=== PATIENT | male | born 1945 | race Caucasian/White ===

== ENCOUNTER 2017-07-15 14:37 | Emergency (ER) | payer MEDICARE, BC ==
[2017-07-15 14:50] VITALS: BP 142/80
[2017-07-15] MEDS ORDERED: Sodium Chloride 0.9% 10 ML Syringe FLUSH PRN (15:07)
[2017-07-15] MEDS ORDERED: Sodium Chloride 0.9% 1,000 ML IV SCH (15:15)
[2017-07-15] MEDS ORDERED: Diatrizoate Meglumine/Diatrizoate Sodium 37% 120 ML Bottle PO ONE (15:55)
[2017-07-15] MEDS ORDERED: LORazepam 2 MG/ML MDV IVPUSH ONE (16:55)
[2017-07-15] MEDS ORDERED: HYDROmorphone 0.5 MG/0.5 ML Syringe IVPUSH ONE (16:55)
--- NOTE | 2017-07-15 16:58 | CT ---
CT abdomen and pelvis Technique: Multiple axial sections were obtained from above the dome of the diaphragm inferiorly through the pubic symphysis. Intravenous contrast was refused by the patient. Oral contrast has been given. Findings: Right inguinal hernia is identified containing a portion of the sigmoid colon. This hernia does not appear to cause any obstruction at this time. There appears to be bowel wall thickening within the right side of the colon and cecum. No small bowel dilatation is seen. Visualized lung bases shows nothing acute. Noncontrast appearance of the liver appears within normal limits. Small hiatal hernia is seen. Spleen appears within normal limits. Kidneys show no abnormal calcifications or hydronephrosis. No discrete adrenal mass is appreciated. Pancreas shows no discrete abnormality. Surgical clips are seen around the stomach. Appendix not appreciated with certainty. No free fluid or definite inflammatory change is seen. Bone window settings were reviewed which show scattered degenerative change within the spine. Unilateral spondylolytic defect is seen at L5-S1. Impression: 1. Right inguinal hernia containing a loop of nondilated sigmoid colon. 2. Bowel wall thickening appears to be present within the right colon and cecum compatible with a nonspecific colitis. 3. Appendix is not definitely visualized. 4. Small hiatal hernia and other incidental findings. Diagnostic code #3
--- NOTE | 2017-07-15 17:25 | EDM.PDOC ---
ED HPI GENERAL MEDICAL PROBLEM - General Chief Complaint: Abdominal Pain Stated Complaint: LOWER ABDOMINAL PAIN Time Seen by Provider: 07/15/17 14:49 Source of Information: Reports: Patient History Limitations: Reports: No Limitations - History of Present Illness INITIAL COMMENTS - FREE TEXT/NARRATIVE: The patient presents with lower abdominal pain. He has a known right inguinal hernia that has not bothered him for years. He was walking across his lawn today and developed severe pain to the suprapubic/pubic region. There was a mass there according to his . The pain was better when he got here. He had some nausea with it but no vomiting. He got diaphoretic. He has no dysuria or hematuria. He has no fever, chills, cough, chest pain or shortness of breath. Onset: Sudden Duration: Minutes: Location: Reports: Abdomen (Suprapubic and pubic) Quality: Reports: Sharp Severity: Severe Improves with: Reports: None Worsens with: Reports: None Associated Symptoms: Reports: Nausea/Vomiting. Denies: Chest Pain, Cough, Fever /Chills, Shortness of Breath Lower Abdominal Pain Score (Numeric/FACES): 8 - Related Data Allergies Allergy/AdvReac Type Severity Reaction Status Date / Time ERICH Inhibitors Allergy Cough Verified 07/15/17 14:50 Home Meds: Home Meds Acetaminophen/Diphenhydramine [Tylenol Pm Ex-Strength Caplet] 1 tab PO BEDTIME PRN 08/02/16 [History] Aspirin 162 mg PO DAILY 08/02/16 [History] Fluticasone/Salmeterol [Advair 250-50 Diskus] 1 puff INH BID 08/02/16 [History] Insulin Detemir [Levemir Flextouch] 6 units SQ BEDTIME 08/02/16 [History] Insulin Detemir [Levemir Flextouch] 26 units SQ QAM 08/02/16 [History] Metoprolol Tartrate 25 mg PO BID 08/02/16 [History] Multivitamin [Multivitamins] 1 each PO DAILY 08/02/16 [History] Olmesartan [Benicar] 5 mg PO DAILY 08/02/16 [History] Silver Sulfadiazine [Silvadene 1% Cream 20 GM] 1 applic TOP TID PRN 08/02/16 [ History] Triamcinolone Acetonide [Kenalog-10] 1 applic TOP BID PRN 08/02/16 [History] Ubidecarenone [Coq-10] 1 tab PO DAILY 08/02/16 [History] atorvaSTATin [Lipitor] 40 mg PO BEDTIME 08/02/16 [History] Levothyroxine 150 mcg PO DAILY 07/15/17 [History] Melatonin 10 mg PO BEDTIME 07/15/17 [History] Past Medical History HEENT History: Reports: Allergic Rhinitis, Impaired Vision, Other (See Below) Other HEENT History: wears glasses Cardiovascular History: Reports: CAD, High Cholesterol, Hypertension, [place] Respiratory History: Reports: Sleep Apnea Other Respiratory History: medialstinal and hilar lympadenopathy, restrictive lung disease Gastrointestinal History: Reports: Other (See Below) Other Gastrointestinal History: Hernia Genitourinary History: Reports: Other (See Below) Other Genitourinary History: erectile dysfunction Musculoskeletal History: Reports: Fracture Other Musculoskeletal History: broken wrist Neurological History: Reports: CVA, Other (See Below) Other Neuro History: Right sided weakness Endocrine/Metabolic History: Reports: Diabetes, Type II, Hyperthyroidism, Hypothyroidism Other Endocrine/Metabolic History: thyroid mass Hematologic History: Reports: Other (See Below) Other Hematologic History: thrombocytopenia, hyperkalemia Dermatologic History: Reports: Seborrheic Dermatitis - Past Surgical History Cardiovascular Surgical History: Reports: Coronary Artery Bypass Endocrine Surgical History: Reports: Thyroidectomy Social & Family History - Family History Family Medical History: Noncontributory - Tobacco Use Smoking Status *Q: Never Smoker Month Tobacco Last Used: 30 years ago - Recreational Drug Use Recreational Drug Use: No Drug Use in Last 12 Months: No ED ROS GENERAL - Review of Systems Review Of Systems: See Below Constitutional: Reports: No Symptoms HEENT: Reports: No Symptoms Respiratory: Reports: No Symptoms Cardiovascular: Reports: No Symptoms Endocrine: Reports: No Symptoms GI/Abdominal: Reports: Abdominal Pain, Nausea. Denies: Vomiting : Reports: No Symptoms Musculoskeletal: Reports: No Symptoms ED EXAM, GI/ABD - Physical Exam Exam: See Below Exam Limited By: No Limitations General Appearance: Alert, No Apparent Distress Ears: Normal External Exam Nose: Normal Inspection Head: Atraumatic, Normocephalic Neck: Normal Inspection Respiratory/Chest: No Respiratory Distress, Lungs Clear, Normal Breath Sounds Cardiovascular: Regular Rate, Rhythm, No Edema, No Murmur GI/Abdominal Exam: Soft, Non-Tender, No Organomegaly, No Mass, Other (Fullness to the right inguinal area) Course - Vital Signs Last Recorded V/S: Last Vital Signs Temp 97.2 F 07/15/17 14:46 Pulse 69 07/15/17 14:46 Resp 16 07/15/17 14:46 BP 142/80 H 07/15/17 14:46 Pulse Ox 98 07/15/17 14:46 - Orders/Labs/Meds Orders: Active Orders 24 hr Category Date Time Status Peripheral IV Care [RC] . DIRECTED Care 07/15/17 15:08 Active Sodium Chloride 0.9% [Normal Saline] 1,000 ml Med 07/15/17 15:15 Active IV ASDIRECTED Sodium Chloride 0.9% [Saline Flush] Med 07/15/17 15:07 Active 10 ml FLUSH ASDIRECTED PRN Peripheral IV Insertion Adult [OM.PC] Stat Oth 07/15/17 15:07 Ordered Medication Orders Sodium Chloride (Normal Saline) 1,000 mls @ 125 mls/hr IV ASDIRECTED JOSE RAFAEL Last Admin: 07/15/17 15:27 Dose: 125 mls/hr Sodium Chloride (Saline Flush) 10 ml FLUSH ASDIRECTED PRN PRN Reason: Keep Vein Open Last Admin: 07/15/17 15:26 Dose: 10 ml Labs: Laboratory Tests 07/15/17 07/15/17 07/15/17 Range/Units 15:20 15:25 15:25 WBC 3.43 L (4.23-9.07) K/mm3 RBC 4.52 L (4.63-6.08) M/mm3 Hgb 14.6 (13.7-17.5) gm/L Hct 43.1 (40.1-51.0) % MCV 95.4 H (79.0-92.2) fl MCH 32.3 H (25.7-32.2) pg MCHC 33.9 (32.2-35.5) g/dl RDW Std Deviation 43.7 (35.1-43.9) fL Plt Count 112 L (163-337) K/mm3 MPV 11.0 (9.4-12.3) fl Neut % (Auto) 53.6 (34.0-67.9) % Lymph % (Auto) 28.3 (21.8-53.1) % [place] % (Auto) 10.8 (5.3-12.2) % Eos % (Auto) 6.4 (0.8-7.0) Baso % (Auto) 0.9 (0.1-1.2) % Neut # (Auto) 1.84 (1.78-5.38) K/mm3 Lymph # (Auto) 0.97 L (1.32-3.57) K/mm3 [place] # (Auto) 0.37 (0.30-0.82) K/mm3 Eos # (Auto) 0.22 (0.04-0.54) K/mm3 Baso # (Auto) 0.03 (0.01-0.08) K/mm3 Sodium 142 (136-145) mEq/L Potassium 5.1 (3.5-5.1) mEq/L Chloride 105 (98-107) mEq/L Carbon Dioxide 29 (21-32) mEq/L Anion Gap 13.1 (5-15) BUN 26 H (7-18) mg/dL Creatinine 1.3 (0.7-1.3) mg/dL Est Cr Clr Drug Dosing 55.45 mL/min Estimated GFR (MDRD) 55 (>60) mL/min BUN/Creatinine Ratio 20.0 H (14-18) Glucose 280 H (80-115) mg/dL Calcium 8.5 (8.5-10.1) mg/dL Total Bilirubin 0.8 (0.2-1.0) mg/dL AST 39 H (15-37) U/L ALT 46 (16-63) U/L Alkaline Phosphatase 91 (46-116) U/L Total Protein 6.6 (6.4-8.2) g/dl Albumin 3.5 (3.4-5.0) g/dl Globulin 3.1 gm/dL Albumin/Globulin Ratio 1.1 (1-2) Lipase 111 (73-393) U/L Urine Color Light yellow (Yellow) Urine Appearance Clear (Clear) Urine pH 6.5 (5.0-8.0) Ur Specific Depue 1.015 (1.005-1.030) Urine Protein Negative (Negative) Urine Glucose (UA) 2+ H (Negative) Urine Ketones Negative (Negative) Urine Occult Blood Trace-intact H (Negative) Urine Nitrite Negative (Negative) Urine Bilirubin Negative (Negative) Urine Urobilinogen 0.2 (0.2-1.0) Ur Leukocyte Esterase Negative (Negative) Urine RBC 5-10 H (0-5) /hpf Urine WBC 0-5 (0-5) /hpf Ur Epithelial Cells 0-5 (0-5) /hpf Urine Bacteria Rare (FEW) /hpf Urine Mucus Not seen (FEW) /hpf Meds: Medications Generic Name Dose Route Start Last Admin Trade Name Freq PRN Reason Stop Dose Admin Sodium Chloride 1,000 mls @ 125 mls/hr 07/15/17 15:15 07/15/17 15:27 Normal Saline IV 125 mls/hr ASDIRECTED JOSE RAFAEL Administration Sodium Chloride 10 ml 07/15/17 15:07 07/15/17 15:26 Saline Flush FLUSH 10 ml ASDIRECTED PRN Administration Keep Vein Open Discontinued Medications Generic Name Dose Route Start Last Admin Trade Name Freq PRN Reason Stop Dose Admin Diatrizoate Meglum/Diatrizoate Sod 90 ml 07/15/17 15:55 07/15/17 16:26 Gastrografin 37% PO 07/15/17 15:56 90 ml ONETIME ONE Administration Hydromorphone HCl 0.5 mg 07/15/17 16:55 Dilaudid IVPUSH 07/15/17 16:56 ONETIME ONE Lorazepam 0.5 mg 07/15/17 16:55 Ativan IVPUSH 07/15/17 16:56 ONETIME ONE - Re-Assessments/Exams Free Text/Narrative Re-Assessment/Exam: 07/15/17 17:23 I ordered an IV saline lock, labs and a CT of his abdomen and pelvis. 07/15/17 17:26 His WBC was 3.43. His BUN was elevated at 26. His glucose was 280. His AST was elevated at 39. His UA shows no UTI. His CT shows right inguinal hernia containing a loop of nondilated sigmoid colon. Bowel wall thickening appears to be present within the right colon and cecum compatible with a nonspecific colitis. Appendix is not definitely visualized. Small hiatal hernia and other incidental findings. When he go up to go to CT his pain come back but not as bad. He went to have a bowel movement and it came back severe. I ordered dilaudid 0.5mg IV and ativan 0.5mg IV. He was able to relax and the pain got better. The hernia was not bulging out when he had the severe pain. I could not fully reduce it. 07/15/17 17:40 Dr Renteria came to see the patient and he was able to fully reduce it. He would like to see him and he would like a truss from [facility]. Departure - Departure Time of Disposition: 17:45 Disposition: Home, Self-Care 01 Condition: Good Clinical Impression: Right inguinal hernia - Discharge Information Referrals: Nghia Renteria MD [Physician] - Forms: ED Department Discharge Additional Instructions: Get the hernia truss from [facility] know as [facility]. Follow up with . Call tomorrow to make an appointment and make sure you tell them you were in the ER and Dr Renteria wants to see you on . Please return if you are worse. - My Orders Last 24 Hours: My Active Orders 07/15/17 15:07 Sodium Chloride 0.9% [Saline Flush] 10 ml FLUSH ASDIRECTED PRN Peripheral IV Insertion Adult [OM.PC] Stat 07/15/17 15:08 Peripheral IV Care [RC] . DIRECTED 07/15/17 15:15 Sodium Chloride 0.9% [Normal Saline] 1,000 ml IV ASDIRECTED - Assessment/Plan Last 24 Hours: My Active Orders 07/15/17 15:07 Sodium Chloride 0.9% [Saline Flush] 10 ml FLUSH ASDIRECTED PRN Peripheral IV Insertion Adult [OM.PC] Stat 07/15/17 15:08 Peripheral IV Care [RC] . DIRECTED 07/15/17 15:15 Sodium Chloride 0.9% [Normal Saline] 1,000 ml IV ASDIRECTED
== END 2017-07-15 18:00 | disposition home or self-care (01) ==
LOC: JD.ED 14:37
DX: K40.90 Unilateral inguinal hernia, without obstruction or gangrene, not specified as recurrent (principal); H54.7 Unspecified visual loss; E78.00 Pure hypercholesterolemia, unspecified; I25.10 Atherosclerotic heart disease of native coronary artery without angina pectoris; I10 Essential (primary) hypertension; I25.2 Old myocardial infarction; E11.9 Type 2 diabetes mellitus without complications; E03.9 Hypothyroidism, unspecified; Z95.1 Presence of aortocoronary bypass graft; Z88.8 Allergy status to other drugs, medicaments and biological substances; Z79.82 Long term (current) use of aspirin; Z79.899 Other long term (current) drug therapy; Z98.890 Other specified postprocedural states; Z86.73 Personal history of transient ischemic attack (TIA), and cerebral infarction without residual deficits
CPT/HCPCS: 36415; 74176; 80053; 81001; 83690; 85025; 96361; 96374; 96375; 99284; J1170; J2060; J7040; J7050; Q9963

== ENCOUNTER 2017-08-13 08:17 | Day surgery (SDC) | payer MEDICARE, BC ==
[~2017-08-13 08:17] MED LIST: Dexamethasone 4 MG/ML SDV ONE; Lactated Ringers 1,000 ML IV SCH; Lidocaine 1% 4 ML ONE; Lidocaine 1%/Sod Bicarbonate in NS 8.4% 1 ML Syringe PRN; Midazolam 1 MG/ML 2 ML SDV ONE; Ondansetron 4 MG/2 ML SDV ONE; Propofol 200 MG/20 ML SDV ONE; Sodium Chloride 0.9% 10 ML Syringe FLUSH PRN; fentaNYL 250 MCG/5 ML SDV ONE
[2017-08-13] MEDS ORDERED: Lidocaine 1% with EPINEPHrine 1:100,000 20 ML MDV ONE (08:19)
[2017-08-13] MEDS ORDERED: Bupivacaine 0.5%/EPINEPHrine 1:200,000 50 ML MDV ONE (08:19)
--- NOTE | 2017-08-13 08:37 | PCM.PREANE ---
Preanesthetic Assessment - Anesthesia/Transfusion/Family Hx Anesthesia History: Prior Anesthesia Without Reaction Family History of Anesthesia Reaction: No Transfusion History: No Prior Transfusion(s) Intubation History: Unknown - Review of Systems General: No Symptoms Pulmonary: No Symptoms (Quit smoking 30 years ago./COPD Restrictive in pattern/ Resolved KEYONNA with weight loss) Cardiovascular: No Symptoms (HTN, CAD, MT tentatively in 2013, CABG in 1997 times 5 vessels, Patient denies any chest pain currently and walks daily.) Neurological: No Symptoms (History of CVA 2013), Weakness (Right sided weakness noted.), Gait Disturbance (due to stroke and right sided weakness) Other: Reports: Diabetes (629 HI=120), Thyroid Problems (Thyroidectomy in May 2017) - Physical Assessment NPO Status Date: 08/12/17 NPO Status Time: 18:00 Pulse: 58 O2 Sat by Pulse Oximetry: 98 Respiratory Rate: 16 Blood Pressure: 130/78 Temperature: 36.6 C Height: 1.79 m Weight: 94.801 kg ASA Class: 3 Mental Status: Alert & Oriented x3 Airway Class: Mallampati = 2 Dentition: Reports: Normal Dentition, Caries Thyro-Mental Finger Breadths: 3 Mouth Opening Finger Breadths: 3 ROM/Head Extension: Full Lungs: Clear to Auscultation, Normal Respiratory Effort, Decreased Breath Sounds Cardiovascular: Regular Rate, Regular Rhythm, No Murmurs - Lab Values: Lab values reviewed and noted and within acceptable ranges to proceed with scheduled procedure. Elevated BUN =26 MRSA - - Imaging/EKG Impressions: EKG:(June 05, 2017) SB with PVC's rate=59, RBBB, Inferior infarct- age undetermined Stable mild hilar mediastinal lymphadenopathy noted. EF: 55% - Allergies Allergies/Adverse Reactions: Allergies Allergy/AdvReac Type Severity Reaction Status Date / Time ERICH Inhibitors AdvReac Cough Verified 08/13/17 07:54 - Anesthesia Plan Pre-Op Medication Ordered: None Beta Isis: Metoprolol Med Last Dose Date: 08/13/17 Med Last Dose Time: 06:30 - Acknowledgements Anesthesia Type Planned: General Anesthesia Pt an Appropriate Candidate for the Planned Anesthesia: Yes Alternatives and Risks of Anesthesia Discussed w Pt/Guardian: Yes Pt/Guardian Understands and Agrees with Anesthesia Plan: Yes PreAnesthesia Questionnaire HEENT History: Reports: Allergic Rhinitis, Impaired Vision, Other (See Below) Other HEENT History: wears glasses Cardiovascular History: Reports: CAD, High Cholesterol, Hypertension, [place] Respiratory History: Reports: Sleep Apnea Other Respiratory History: medialstinal and hilar lympadenopathy, restrictive lung disease Gastrointestinal History: Reports: Colon Polyp, Other (See Below) Other Gastrointestinal History: Hernia Genitourinary History: Reports: Other (See Below) Other Genitourinary History: erectile dysfunction [employer] History: Reports: None Musculoskeletal History: Reports: Fracture Other Musculoskeletal History: broken wrist Neurological History: Reports: CVA, Other (See Below) Other Neuro History: Right sided weakness Psychiatric History: Reports: None Endocrine/Metabolic History: Reports: Diabetes, Type II, Hyperthyroidism, Hypothyroidism Other Endocrine/Metabolic History: thyroid mass Hematologic History: Reports: Other (See Below) Other Hematologic History: thrombocytopenia, hyperkalemia Immunologic History: Reports: None Oncologic (Cancer) History: Reports: None Dermatologic History: Reports: Seborrheic Dermatitis - Past Surgical History Head Surgeries/Procedures: Reports: None Cardiovascular Surgical History: Reports: Coronary Artery Bypass GI Surgical History: Reports: Colonoscopy Endocrine Surgical History: Reports: Thyroidectomy - SUBSTANCE USE Smoking Status *Q: Never Smoker Recreational Drug Use History: No - HOME MEDS Home Medications: Home Meds Acetaminophen/Diphenhydramine [Tylenol Pm Ex-Strength Caplet] 1 tab PO BEDTIME PRN 08/02/16 [History] Aspirin 162 mg PO DAILY 08/02/16 [History] Fluticasone/Salmeterol [Advair 250-50 Diskus] 1 puff INH BID 08/02/16 [History] Insulin Detemir [Levemir Flextouch] 6 units SQ BEDTIME 08/02/16 [History] Insulin Detemir [Levemir Flextouch] 26 units SQ QAM 08/02/16 [History] Metoprolol Tartrate 25 mg PO BID 08/02/16 [History] Multivitamin [Multivitamins] 1 each PO DAILY 08/02/16 [History] Olmesartan [Benicar] 5 mg PO DAILY 08/02/16 [History] Silver Sulfadiazine [Silvadene 1% Cream 20 GM] 1 applic TOP TID PRN 08/02/16 [ History] Triamcinolone Acetonide [Kenalog-10] 1 applic TOP BID PRN 09/09/16 [History] Ubidecarenone [Coq-10] 1 tab PO DAILY 08/02/16 [History] atorvaSTATin [Lipitor] 40 mg PO BEDTIME 08/02/16 [History] Levothyroxine 150 mcg PO DAILY 07/15/17 [History] Melatonin 10 mg PO BEDTIME 07/15/17 [History] - CURRENT (IN HOUSE) MEDS Current Meds: Current Medications Lactated Ringer's (Ringers, Lactated) 1,000 mls @ 125 mls/hr IV ASDIRECTED JOSE RAFAEL Stop: 08/13/17 23:00 Lidocaine/Sodium Bicarbonate (Buffered Lidocaine 1% In Ns 8.4%) 0.25 ml .XX ONETIME PRN PRN Reason: Prior to IV Start Stop: 08/13/17 18:00 Sodium Chloride (Saline Flush) 10 ml FLUSH ASDIRECTED PRN PRN Reason: Keep Vein Open Stop: 08/13/17 18:00 Discontinued Medications Dexamethasone (Dexamethasone) Confirm Administered Dose 4 mg .ROUTE .STK-MED ONE Stop: 08/13/17 07:12 Fentanyl (Sublimaze) Confirm Administered Dose 250 mcg .ROUTE .STK-MED ONE Stop: 08/13/17 07:11 Lidocaine HCl (Xylocaine-Mpf 1%) Confirm Administered Dose 4 mls @ as directed .ROUTE .STK-MED ONE Stop: 08/13/17 07:12 Midazolam HCl (Versed 1 Mg/Ml) Confirm Administered Dose 2 mg .ROUTE .STK-MED ONE Stop: 08/13/17 07:11 Ondansetron HCl (Zofran) Confirm Administered Dose 4 mg .ROUTE .STK-MED ONE Stop: 08/13/17 07:12 Propofol (Diprivan 20 Ml) Confirm Administered Dose 200 mg .ROUTE .STK-MED ONE Stop: 08/13/17 07:11
[2017-08-13] MEDS ORDERED: ceFAZolin 1 GM Vial ONE (09:28)
[2017-08-13] MEDS ORDERED: ePHEDrine/Normal Saline 25 MG/5 ML Syringe ONE (09:46)
[2017-08-13] MEDS ORDERED: fentaNYL 100 MCG/2 ML SDV IVPUSH PRN (11:14)
[2017-08-13] MEDS ORDERED: Ondansetron 4 MG/2 ML SDV IVPUSH PRN (11:14)
[2017-08-13] MEDS ORDERED: diphenhydrAMINE 50 MG/ML SDV IVPUSH PRN (11:14)
[2017-08-13] MEDS ORDERED: Meperidine PF 50 MG/ML Syringe IVPUSH PRN (11:14)
[2017-08-13] MEDS ORDERED: HYDROmorphone 0.5 MG/0.5 ML Syringe IVPUSH PRN (11:14)
--- NOTE | 2017-08-13 11:36 | PCM.OPNOTE ---
- General Post-Op/Procedure Note Date of Surgery/Procedure: 08/13/17 Operative Procedure(s): 1. Open right inguinal hernia repair with mesh. 2. Excision of cord lipoma Findings: Subcutaneous tissue scarring as well as scarring along the external oblique fascia. There was a large indirect hernia sac located anterior and medial to the spermatic cord structures. The floor of the canal was in good shape. There was a large cord lipoma attached to the hernia sac in the lateral position. Pre Op Diagnosis: Symptomatic right inguinal hernia Post-Op Diagnosis: Indirect right inguinal hernia. Cord lipoma Anesthesia Technique: General LMA, Local Primary Surgeon: Nghia Renteria Pathology: None EBL in mLs: 5 Complications: None Condition: Good Free Text/Narrative:: After adequate LMA general anesthesia was obtained the patient's right groin was prepped and draped sterilely for the procedure. Local analgesia was given over the inguinal canal. An incision was made with a knife and extended down to the external oblique fascia which was opened in the direction of its fibers. There was extensive scarring from the truss that he had been wearing and the chronicity hernia. The nerve was identified and retracted laterally. The cord was mobilized at the pubic tubercle. The floor of the canal was intact. There was a large hernia sac present along the anteromedial aspect of the spermatic cord. The sac was carefully dissected away from cord structures after mobilizing the cord and controlled with a [place] drain. I opened the sac which was empty. I used a 2-0 silk suture to ligate the base of the sac which was amputated. The previously described cord lipoma was clamped at its base and ligated as well after excision. Mesh was placed in the floor of the canal securing it to the inguinal ligament and the internal oblique fascia with running 2-0 Prolene. A keyhole in the mesh was used for cord egress. The field was irrigated out with saline. Spot hemostasis was obtained with cautery. The external oblique fascia was closed over the cord with a running Vicryl. Wade' s and the skin were closed with Vicryl as well. Additional local analgesia was given before skin closure. Jennifer were used to close the skin. Gauze and tape were used for the dressing. There were no procedural complications.
--- NOTE | 2017-08-13 11:44 | PCM.POSTAN ---
POST ANESTHESIA ASSESSMENT - MENTAL STATUS Mental Status: Alert, Oriented - VITAL SIGNS Pulse Rate: 76 SaO2: 94 Resp Rate: 16 Blood Pressure: 106/64 Temperature: 37.6 C - RESPIRATORY Respiratory Status: Respiratory Rate WNL, Airway Patent, O2 Saturation Stable, Supplemental Oxygen - CARDIOVASCULAR CV Status: Pulse Rate WNL, Blood Pressure Stable - GASTROINTESTINAL GI Status: No Symptoms - PAIN Pain Score: 0 - POST OP HYDRATION Hydration Status: Adequate & Stable
[2017-08-13 13:41] VITALS: BP 113/60
--- NOTE | 2017-08-13 13:46 | PCM48HPAN ---
Post Anesthesia Note - EVALUATION WITHIN 48HRS OF ANESTHETIC Vital Signs in Normal Range: Yes Patient Participated in Evaluation: Yes Respiratory Function Stable: Yes Airway Patent: Yes Cardiovascular Function Stable: Yes Hydration Status Stable: Yes Pain Control Satisfactory: Yes Nausea and Vomiting Control Satisfactory: Yes Mental Status Recovered: Yes
== END 2017-08-13 13:30 | disposition home or self-care (01) ==
LOC: JD.SDS 08:17
PROVIDERS: ATTEND Surgery
PROC: 0YU50JZ Supplement Right Inguinal Region with Synthetic Substitute, Open Approach (ICD-10-PCS; principal; 2017-08-13)
PROC: 0VBF0ZZ Excision of Right Spermatic Cord, Open Approach (ICD-10-PCS; 2017-08-13)
DX: K40.90 Unilateral inguinal hernia, without obstruction or gangrene, not specified as recurrent (principal); I25.10 Atherosclerotic heart disease of native coronary artery without angina pectoris; I10 Essential (primary) hypertension; I25.2 Old myocardial infarction; J44.9 Chronic obstructive pulmonary disease, unspecified; J30.2 Other seasonal allergic rhinitis; E11.9 Type 2 diabetes mellitus without complications; E78.00 Pure hypercholesterolemia, unspecified; E89.0 Postprocedural hypothyroidism; D69.6 Thrombocytopenia, unspecified; Z79.4 Long term (current) use of insulin; Z79.82 Long term (current) use of aspirin; Z79.899 Other long term (current) drug therapy; Z88.8 Allergy status to other drugs, medicaments and biological substances; Z90.89 Acquired absence of other organs; Z95.1 Presence of aortocoronary bypass graft; Z98.890 Other specified postprocedural states; Z86.73 Personal history of transient ischemic attack (TIA), and cerebral infarction without residual deficits; Z87.891 Personal history of nicotine dependence
CPT/HCPCS: 49505; 55520; 82962; C1781; J0690; J1170; J2250; J2405; J3010; J7050; J7120; 00830; J1100; J2704

== ENCOUNTER 2017-10-06 16:58 | Inpatient (IN) | payer MEDICARE, BC ==
[2017-10-06] MEDS ORDERED: HYDROmorphone 0.5 MG/0.5 ML Syringe IVPUSH STA (17:58)
[2017-10-06] MEDS ORDERED: HYDROmorphone 1 MG/ML Syringe IVPUSH ONE (18:31)
--- NOTE | 2017-10-06 18:33 | EDM.PDOC ---
ED HPI GENERAL MEDICAL PROBLEM - General Chief Complaint: Lower Extremity Injury/Pain Stated Complaint: DI AMBULANCE Time Seen by Provider: 10/06/17 18:32 Source of Information: Reports: Patient History Limitations: Reports: No Limitations - History of Present Illness INITIAL COMMENTS - FREE TEXT/NARRATIVE: Patient is a 72-year-old male with a history of stroke in 2013 with balance issues who presents to the ED complaining of right hip pain. Patient states he was putting something away in the kitchen and turned. Upon turning the patient lost his balance and fell on his right hip. There was no loss consciousness. He only complains of right hip pain denies any additional injuries remaining parts of his body. Nor does he complain of any chest pain, shortness of breath, nausea vomiting, abdominal pain, numbness or tingling, or any additional complaints. Last meal was approximately noon today. States he has not had anything to drink sine lunch as well. Patient has a long history of chronic comorbidities. Please see list. In relation to the stroke they were unable to isolate where the emboli came from. They suspect patient may have had a heart attack while crossing the [facility] throwing multiple clots to his brain. Patient has has had multiple strokes apparent on imaging. Right Hip Pain Score (Numeric/FACES): 8 - Related Data Allergies Allergy/AdvReac Type Severity Reaction Status Date / Time ERICH Inhibitors AdvReac Cough Verified 08/13/17 07:54 Home Meds: Home Meds Acetaminophen/Diphenhydramine [Tylenol Pm Ex-Strength Caplet] 1 tab PO BEDTIME PRN 08/02/16 [History] Aspirin 162 mg PO DAILY 08/02/16 [History] Fluticasone/Salmeterol [Advair 250-50 Diskus] 1 puff INH BID 08/02/16 [History] Insulin Detemir [Levemir Flextouch] 6 units SQ BEDTIME 08/02/16 [History] Insulin Detemir [Levemir Flextouch] 26 units SQ QAM 08/02/16 [History] Metoprolol Tartrate 25 mg PO BID 08/02/16 [History] Multivitamin [Multivitamins] 1 each PO DAILY 08/02/16 [History] Olmesartan [Benicar] 5 mg PO DAILY 08/02/16 [History] Silver Sulfadiazine [Silvadene 1% Cream 20 GM] 1 applic TOP TID PRN 08/02/16 [ History] Triamcinolone Acetonide [Kenalog-10] 1 applic TOP BID PRN 08/02/16 [History] Ubidecarenone [Coq-10] 1 tab PO DAILY 08/02/16 [History] atorvaSTATin [Lipitor] 40 mg PO BEDTIME 08/02/16 [History] Levothyroxine 150 mcg PO DAILY 07/15/17 [History] Melatonin 10 mg PO BEDTIME 07/15/17 [History] Past Medical History HEENT History: Reports: Allergic Rhinitis, Impaired Vision, Other (See Below) Other HEENT History: wears glasses Cardiovascular History: Reports: CAD, High Cholesterol, Hypertension, [place] Respiratory History: Reports: Sleep Apnea Other Respiratory History: medialstinal and hilar lympadenopathy, restrictive lung disease Gastrointestinal History: Reports: Colon Polyp, Other (See Below) Other Gastrointestinal History: Hernia Genitourinary History: Reports: Other (See Below) Other Genitourinary History: erectile dysfunction [employer] History: Reports: None Musculoskeletal History: Reports: Fracture Other Musculoskeletal History: broken wrist Neurological History: Reports: CVA, Other (See Below) Other Neuro History: Right sided weakness Psychiatric History: Reports: None Endocrine/Metabolic History: Reports: Diabetes, Type II, Hyperthyroidism, Hypothyroidism Other Endocrine/Metabolic History: thyroid mass Hematologic History: Reports: Other (See Below) Other Hematologic History: thrombocytopenia, hyperkalemia Immunologic History: Reports: None Oncologic (Cancer) History: Reports: None Dermatologic History: Reports: Seborrheic Dermatitis - Past Surgical History Head Surgeries/Procedures: Reports: None Cardiovascular Surgical History: Reports: Coronary Artery Bypass GI Surgical History: Reports: Colonoscopy Endocrine Surgical History: Reports: Thyroidectomy Social & Family History - Family History Family Medical History: Noncontributory - Tobacco Use Smoking Status *Q: Never Smoker Month Tobacco Last Used: 30 years ago Second Hand Smoke Exposure: No - Caffeine Use Caffeine Use: Reports: Coffee - Recreational Drug Use Recreational Drug Use: No Drug Use in Last 12 Months: No Review of Systems - Review of Systems Review Of Systems: ROS reveals no pertinent complaints other than HPI. ED EXAM, GENERAL - Physical Exam Exam: See Below Exam Limited By: No Limitations General Appearance: Alert, WD/WN, No Apparent Distress Ears: Hearing Grossly Normal Nose: No Blood Throat/Mouth: Normal Voice, No Airway Compromise Neck: Normal Inspection, Supple Respiratory/Chest: No Respiratory Distress, Lungs Clear, Normal Breath Sounds, No Accessory Muscle Use, Chest Non-Tender Cardiovascular: Normal Peripheral Pulses, Regular Rate, Rhythm, No Murmur (not obvious) GI/Abdominal: Normal Bowel Sounds, Soft, Non-Tender, No Organomegaly, No Distention Back Exam: Normal Inspection Extremities: Other (Pain noted to the right hip with palpation. Patient's leg is externally rotated and shortened. Trace edema noted. No sensory motor deficits distally. Pulses intact.) Neurological: Alert, CN II-XII Intact, Normal Cognition, No Motor/Sensory Deficits Psychiatric: Normal Affect, Normal Mood Skin Exam: Warm, Dry, Intact, Normal Color Course - Vital Signs Last Recorded V/S: Last Vital Signs Temp 99.3 F 10/06/17 20:26 Pulse 72 10/06/17 20:26 Resp 17 10/06/17 20:26 BP 114/65 10/06/17 20:26 Pulse Ox 99 10/06/17 20:26 - Orders/Labs/Meds Orders: Active Orders 24 hr Category Date Time Status Bella Catheter Insertion [Insert Urinary Catheter] [OM. Care 10/06/17 18:45 Ordered PC] Stat Urinary Catheter Assessment [RC] ASDIRECTED Care 10/06/17 18:34 Active Chest 1V Frontal [CR] Stat Exams 10/06/17 18:33 Taken Hip Min 2V or 3V w Pelvis Rt [CR] Stat Exams 10/06/17 17:43 Taken Sodium Chloride 0.9% [Normal Saline] 1,000 ml Med 10/06/17 18:45 Active IV ASDIRECTED Medication Orders Acetaminophen (Tylenol) 650 mg PO Q4H PRN PRN Reason: Pain (Mild 1-3)/fever Hydrocodone Bitart/Acetaminophen ([place] 325-5 Mg) 1 tab PO Q4H PRN PRN Reason: Pain (moderate 4-6) Last Admin: 10/06/17 22:13 Dose: 1 tab Albuterol/Ipratropium (Duoneb 3.0-0.5 Mg/3 Ml) 3 ml NEB Q4H PRN PRN Reason: Shortness Of Breath/wheezing Aspirin (Halfprin) 162 mg PO DAILY JOSE RAFAEL Bisacodyl (Dulcolax) 5 mg PO DAILY PRN PRN Reason: Constipation Docusate Sodium (Colace) 100 mg PO BID PRN PRN Reason: Constipation Hydromorphone HCl (Dilaudid) 1 mg IVPUSH Q4H PRN PRN Reason: Pain (severe 7-10) Sodium Chloride (Normal Saline) 1,000 mls @ 150 mls/hr IV ASDIRECTED [facility] Last Admin: 10/06/17 19:32 Dose: 150 mls/hr Promethazine HCl 12.5 mg/ (Sodium Chloride) 50.5 mls @ 100 mls/hr IV Q6H PRN PRN Reason: Nausea/Vomiting Insulin Detemir (Levemir) 6 unit SUBCUT BEDTIME [facility] Insulin Detemir (Levemir) 26 unit SUBCUT QAM [facility] Levothyroxine Sodium (Levothyroxine) 150 mcg PO DAILY@0600 [facility] Lorazepam (Ativan) 0.5 mg IV Q6H PRN PRN Reason: Anxiety Losartan Potassium (Cozaar) 25 mg PO DAILY [facility] Metoprolol Tartrate (Lopressor) 25 mg PO BID [facility] Multivitamins (Thera) 1 each PO DAILY [facility] Non-Formulary Medication (Acetaminophen/Diphenhydramine) 1 tab PO BEDTIME PRN PRN Reason: Insomnia Non-Formulary Medication (Fluticasone/Salmeterol) 1 puff INH BID [facility] Non-Formulary Medication (Melatonin [Melatonin]) 10 mg PO BEDTIME [facility] Non-Formulary Medication (Triamcinolone Acetonide [Kenalog-10]) 1 applic TOP BID PRN PRN Reason: skin complications Non-Formulary Medication (Ubidecarenone) 1 tab PO DAILY [facility] Ondansetron HCl (Zofran) 4 mg IV Q6H PRN PRN Reason: Nausea/Vomiting Polyethylene Glycol (Miralax) 17 gm PO DAILY PRN PRN Reason: Constipation Rosuvastatin Calcium (Crestor) 10 mg PO DAILY [facility] Senna/Docusate Sodium (Senna Plus) 1 tab PO BID PRN PRN Reason: Constipation Silver Sulfadiazine (Silvadene 1% Cream 50 Gm) 0 gm TOP TID PRN PRN Reason: SKIN COMPLICATIONS Temazepam (Restoril) 15 mg PO BEDTIME PRN PRN Reason: Sleep Labs: Laboratory Tests 10/06/17 10/06/17 10/06/17 Range/Units 17:50 17:50 17:50 WBC 5.41 (4.23-9.07) K/mm3 RBC 4.47 L (4.63-6.08) M/mm3 Hgb 14.4 (13.7-17.5) gm/L Hct 42.2 (40.1-51.0) % MCV 94.4 H (79.0-92.2) fl MCH 32.2 (25.7-32.2) pg MCHC 34.1 (32.2-35.5) g/dl RDW Std Deviation 42.6 (35.1-43.9) fL Plt Count 130 L (163-337) K/mm3 MPV 10.6 (9.4-12.3) fl Neut % (Auto) 49.2 (34.0-67.9) % Lymph % (Auto) 29.6 (21.8-53.1) % [place] % (Auto) 12.6 H (5.3-12.2) % Eos % (Auto) 7.4 H (0.8-7.0) Baso % (Auto) 0.6 (0.1-1.2) % Neut # (Auto) 2.67 (1.78-5.38) K/mm3 Lymph # (Auto) 1.60 (1.32-3.57) K/mm3 [place] # (Auto) 0.68 (0.30-0.82) K/mm3 Eos # (Auto) 0.40 (0.04-0.54) K/mm3 Baso # (Auto) 0.03 (0.01-0.08) K/mm3 PT 10.9 (8.0-13.0) SECONDS INR 1.00 APTT 27 (22-36) SECONDS Sodium 141 (136-145) mEq/L Potassium 4.1 (3.5-5.1) mEq/L Chloride 105 (98-107) mEq/L Carbon Dioxide 26 (21-32) mEq/L Anion Gap 14.1 (5-15) BUN 22 H (7-18) mg/dL Creatinine 1.2 (0.7-1.3) mg/dL Est Cr Clr Drug Dosing 61.01 mL/min Estimated GFR (MDRD) 60 (>60) mL/min BUN/Creatinine Ratio 18.3 H (14-18) Glucose 156 H (80-115) mg/dL Calcium 8.3 L (8.5-10.1) mg/dL Total Bilirubin 0.6 (0.2-1.0) mg/dL AST 23 (15-37) U/L ALT 35 (16-63) U/L Alkaline Phosphatase 99 (46-116) U/L Total Protein 6.4 (6.4-8.2) g/dl Albumin 3.4 (3.4-5.0) g/dl Globulin 3.0 gm/dL Albumin/Globulin Ratio 1.1 (1-2) Blood Type Gel Antibody Screen 10/06/17 Range/Units 17:50 WBC (4.23-9.07) K/mm3 RBC (4.63-6.08) M/mm3 Hgb (13.7-17.5) gm/L Hct (40.1-51.0) % MCV (79.0-92.2) fl MCH (25.7-32.2) pg MCHC (32.2-35.5) g/dl RDW Std Deviation (35.1-43.9) fL Plt Count (163-337) K/mm3 MPV (9.4-12.3) fl Neut % (Auto) (34.0-67.9) % Lymph % (Auto) (21.8-53.1) % [place] % (Auto) (5.3-12.2) % Eos % (Auto) (0.8-7.0) Baso % (Auto) (0.1-1.2) % Neut # (Auto) (1.78-5.38) K/mm3 Lymph # (Auto) (1.32-3.57) K/mm3 [place] # (Auto) (0.30-0.82) K/mm3 Eos # (Auto) (0.04-0.54) K/mm3 Baso # (Auto) (0.01-0.08) K/mm3 PT (8.0-13.0) SECONDS INR APTT (22-36) SECONDS Sodium (136-145) mEq/L Potassium (3.5-5.1) mEq/L Chloride (98-107) mEq/L Carbon Dioxide (21-32) mEq/L Anion Gap (5-15) BUN (7-18) mg/dL Creatinine (0.7-1.3) mg/dL Est Cr Clr Drug Dosing mL/min Estimated GFR (MDRD) (>60) mL/min BUN/Creatinine Ratio (14-18) Glucose (80-115) mg/dL Calcium (8.5-10.1) mg/dL Total Bilirubin (0.2-1.0) mg/dL AST (15-37) U/L ALT (16-63) U/L Alkaline Phosphatase (46-116) U/L Total Protein (6.4-8.2) g/dl Albumin (3.4-5.0) g/dl Globulin gm/dL Albumin/Globulin Ratio (1-2) Blood Type O POSITIVE Gel Antibody Screen Negative Meds: Medications Generic Name Dose Route Start Last Admin Trade Name Freq PRN Reason Stop Dose Admin Acetaminophen 650 mg 10/06/17 21:30 Tylenol PO Q4H PRN Pain (Mild 1-3)/fever Hydrocodone Bitart/Acetaminophen 1 tab 10/06/17 21:30 10/06/17 22:13 [place] 325-5 Mg PO 1 tab Q4H PRN Administration Pain (moderate 4-6) Albuterol/Ipratropium 3 ml 10/06/17 21:30 Duoneb 3.0-0.5 Mg/3 Ml NEB Q4H PRN Shortness Of Breath/wheezing Aspirin 162 mg 10/07/17 09:00 Halfprin PO DAILY JOSE RAFAEL Bisacodyl 5 mg 10/06/17 21:30 Dulcolax PO DAILY PRN Constipation Docusate Sodium 100 mg 10/06/17 21:30 Colace PO BID PRN Constipation Hydromorphone HCl 1 mg 10/06/17 21:30 Dilaudid IVPUSH Q4H PRN Pain (severe 7-10) Sodium Chloride 1,000 mls @ 150 mls/hr 10/06/17 18:45 10/06/17 19:32 Normal Saline IV 150 mls/hr ASDIRECTED JOSE RAFAEL Administration Promethazine HCl 12.5 mg/ 50.5 mls @ 100 mls/hr 10/06/17 21:30 Sodium Chloride IV Q6H PRN Nausea/Vomiting Insulin Detemir 6 unit 10/07/17 21:00 Levemir SUBCUT BEDTIME JOSE RAFAEL Insulin Detemir 26 unit 10/07/17 08:00 Levemir SUBCUT QAM [facility] Levothyroxine Sodium 150 mcg 10/07/17 06:00 Levothyroxine PO DAILY@0600 JOSE RAFAEL Lorazepam 0.5 mg 10/06/17 21:30 Ativan IV Q6H PRN Anxiety Losartan Potassium 25 mg 10/07/17 09:00 Cozaar PO DAILY JOSE RAFAEL Metoprolol Tartrate 25 mg 10/07/17 09:00 Lopressor PO BID JOSE RAFAEL Multivitamins 1 each 10/07/17 09:00 Thera PO DAILY JOSE RAFAEL Non-Formulary Medication 1 tab 10/06/17 21:29 Acetaminophen/Diphenhydramine PO BEDTIME PRN Insomnia Non-Formulary Medication 1 puff 10/07/17 09:00 Fluticasone/Salmeterol INH BID JOSE RAFAEL Non-Formulary Medication 10 mg 10/07/17 21:00 Melatonin [Melatonin] PO BEDTIME JOSE RAFAEL Non-Formulary Medication 1 applic 10/06/17 21:29 Triamcinolone Acetonide [Kenalog-10] TOP BID PRN skin complications Non-Formulary Medication 1 tab 10/07/17 09:00 Ubidecarenone PO DAILY JOSE RAFAEL Ondansetron HCl 4 mg 10/06/17 21:30 Zofran IV Q6H PRN Nausea/Vomiting Polyethylene Glycol 17 gm 10/06/17 21:30 Miralax PO DAILY PRN Constipation Rosuvastatin Calcium 10 mg 10/07/17 09:00 Crestor PO DAILY JOSE RAFAEL Senna/Docusate Sodium 1 tab 10/06/17 21:30 Senna Plus PO BID PRN Constipation Silver Sulfadiazine 0 gm 10/06/17 22:15 Silvadene 1% Cream 50 Gm TOP TID PRN SKIN COMPLICATIONS Temazepam 15 mg 10/06/17 21:30 Restoril PO BEDTIME PRN Sleep Discontinued Medications Generic Name Dose Route Start Last Admin Trade Name Freq PRN Reason Stop Dose Admin Hydromorphone HCl 0.5 mg 10/06/17 17:58 10/06/17 18:01 Dilaudid IVPUSH 10/06/17 17:59 0.5 mg NOW STA Administration Hydromorphone HCl 1 mg 10/06/17 18:31 10/06/17 18:36 Dilaudid IVPUSH 10/06/17 18:32 1 mg ONETIME ONE Administration Silver Sulfadiazine 0 gm 10/06/17 22:15 Silvadene 1% Cream 400 Gm TOP TID PRN SKIN COMPLICATIONS - Re-Assessments/Exams Free Text/Narrative Re-Assessment/Exam: X-ray of the right hip was obtained revealing a intertrochanteric fracture fracture. IV has been established. With Dilaudid 0.5 mg IVP. Patient is requesting additional pain medications. Ordered normal saline 150 mls per hour with Dilaudid 1 mg IVP. Labs and studies ordered include: CBC, chem 14, UA, type and screen, EKG, chest x-ray ordered. In addition Bella has been ordered. [address] Tenorio Orthopedic Surgeon on-call. He requests admit to hospitalists to medically clear for surgery, plan on doing surgery Friday of this week. MCG being completed. Labs reviewed: CBC and chem 14 were essentially normal. Chest x-ray one view: Old sternotomy wires from previous coronary bypass. Otherwise no acute findings noted. Final interpretation is pending. EKG sinus rhythm with a right bundle branch block at a rate of 76. No past EKG' s present to compare with. Departure - Departure Time of Disposition: 19:58 Disposition: Admitted As Inpatient 68 Clinical Impression: Intertrochanteric fracture, hip - Discharge Information - My Orders Last 24 Hours: My Active Orders 10/06/17 17:43 Hip Min 2V or 3V w Pelvis Rt [CR] Stat 10/06/17 18:33 Chest 1V Frontal [CR] Stat 10/06/17 18:34 Urinary Catheter Assessment [RC] ASDIRECTED 10/06/17 18:45 Bella Catheter Insertion [Insert Urinary Catheter] [OM.PC] Stat Sodium Chloride 0.9% [Normal Saline] 1,000 ml IV ASDIRECTED - Assessment/Plan Last 24 Hours: My Active Orders 10/06/17 17:43 Hip Min 2V or 3V w Pelvis Rt [CR] Stat 10/06/17 18:33 Chest 1V Frontal [CR] Stat 10/06/17 18:34 Urinary Catheter Assessment [RC] ASDIRECTED 10/06/17 18:45 Belal Catheter Insertion [Insert Urinary Catheter] [OM.PC] Stat Sodium Chloride 0.9% [Normal Saline] 1,000 ml IV ASDIRECTED
[2017-10-06] MEDS: Sodium Chloride 0.9% 1,000 ML IV SCH (19:32)
--- NOTE | 2017-10-06 20:14 | PCM.HP ---
H&P History of Present Illness - General Date of Service: 10/06/17 Admit Problem/Dx: Admission Diagnosis/Problem Admission Diagnosis/Problem Intertrochanteric fracture, hip Source of Information: Patient, Family, Old Records, RN Notes Reviewed History Limitations: Reports: Physical Impairment - History of Present Illness Initial Comments - Free Text/Narative: This is a 72 yo elderly white male with past medical hx/o Impaired Vision, AR, CAD S/p 5 Vessel CABG in 1997, HD, HTN, [place] in 1996, [place] not on CPAP, Restrictive Lung Disease, Hx/o Mediastinal and Hilar Lymphadenopathy, Hx/o Hernia S/p Repair, ED, DM2, Hx/o Hyperthyroidism 2/2 Thyroid Mass, Hypothyroidism S/p Thyroidectomy, Chronic Thrombocytopenia, Hyperkalemia and Seborrheic Dermatitis who comes in for an evaluation of hip pain after sustaining a mechanical fall that took place in his kitchen at home. Patient reports no prodromal symptoms. He admits to having bad socks that caused him to lose his balance, twist and fall. Patient carries a baseline right sided residual deficits form his hx/o Multiple CVA. His initial work up in ED, shows a CBC that is remarkable for RBC of 4.47, MCV of 94.4, platelet of 1:30, monocytes of 12.6%, and eosinophils of 7.4%. His PT is 10.9, INR of 1, APTT of 27. his chemistry is remarkable for BUN of 22, creatinine of 1.2, glucose of 156, and calcium of 8.3. Chest x-ray shows no acute abnormal findings but his hip x-ray shows right inter-trochanteric fracture. Patient is being admitted for acute right hip fracture. He is DNR/DNI. Right Hip Pain Score (Numeric/FACES): 8 - Related Data Allergies/Adverse Reactions: Allergies Allergy/AdvReac Type Severity Reaction Status Date / Time ERICH Inhibitors AdvReac Cough Verified 10/06/17 23:07 Home Medications: Home Meds Acetaminophen/Diphenhydramine [Tylenol Pm Ex-Strength Caplet] 1 tab PO BEDTIME PRN 08/02/16 [History] Aspirin 162 mg PO DAILY 08/02/16 [History] Fluticasone/Salmeterol [Advair 250-50 Diskus] 1 puff INH BID 08/02/16 [History] Insulin Detemir [Levemir Flextouch] 6 units SQ BEDTIME 08/02/16 [History] Insulin Detemir [Levemir Flextouch] 26 units SQ QAM 08/02/16 [History] Metoprolol Tartrate 25 mg PO BID 08/02/16 [History] Multivitamin [Multivitamins] 1 each PO DAILY 08/02/16 [History] Olmesartan [Benicar] 5 mg PO DAILY 08/02/16 [History] Silver Sulfadiazine [Silvadene 1% Cream 20 GM] 1 applic TOP TID PRN 08/02/16 [ History] Triamcinolone Acetonide [Kenalog-10] 1 applic TOP BID PRN 08/02/16 [History] Ubidecarenone [Coq-10] 1 tab PO DAILY 08/02/16 [History] atorvaSTATin [Lipitor] 40 mg PO BEDTIME 08/02/16 [History] Levothyroxine 150 mcg PO DAILY 07/15/17 [History] Melatonin 10 mg PO BEDTIME 07/15/17 [History] Past Medical History HEENT History: Reports: Allergic Rhinitis, Impaired Vision, Other (See Below) Other HEENT History: wears glasses Cardiovascular History: Reports: CAD, High Cholesterol, Hypertension, [place] Respiratory History: Reports: Sleep Apnea Other Respiratory History: medialstinal and hilar lympadenopathy, restrictive lung disease Gastrointestinal History: Reports: Colon Polyp, Other (See Below) Other Gastrointestinal History: Hernia Genitourinary History: Reports: Other (See Below) Other Genitourinary History: erectile dysfunction [employer] History: Reports: None Musculoskeletal History: Reports: Fracture Other Musculoskeletal History: broken wrist Neurological History: Reports: CVA, Other (See Below) Other Neuro History: Right sided weakness Psychiatric History: Reports: None Endocrine/Metabolic History: Reports: Diabetes, Type II, Hyperthyroidism, Hypothyroidism Other Endocrine/Metabolic History: thyroid mass Hematologic History: Reports: Other (See Below) Other Hematologic History: thrombocytopenia, hyperkalemia Immunologic History: Reports: None Oncologic (Cancer) History: Reports: None Dermatologic History: Reports: Seborrheic Dermatitis - Past Surgical History Head Surgeries/Procedures: Reports: None Cardiovascular Surgical History: Reports: Coronary Artery Bypass GI Surgical History: Reports: Colonoscopy Endocrine Surgical History: Reports: Thyroidectomy Social & Family History - Family History Family Medical History: Noncontributory - Tobacco Use Smoking Status *Q: Never Smoker Month Tobacco Last Used: 30 years ago Second Hand Smoke Exposure: No - Caffeine Use Caffeine Use: Reports: Coffee - Recreational Drug Use Recreational Drug Use: No Drug Use in Last 12 Months: No H&P Review of Systems - Review of Systems: Review Of Systems: See Below General: Denies: Fever, Chills, Malaise, Weakness, Fatigue HEENT: Reports: No Symptoms Pulmonary: Denies: Shortness of Breath Cardiovascular: Denies: Chest Pain Gastrointestinal: Denies: Abdominal Pain, Nausea, Vomiting Genitourinary: Reports: No Symptoms Musculoskeletal: Reports: Other (hip pain ) Skin: Denies: Cyanosis, Jaundice, Mottled, Pallor, Diaphoresis, Bruising, Rash, Erythema Psychiatric: Denies: Depression, Anxiety, Agitation, Hallucinations Neurological: Reports: Pre-Existing Deficit, Difficulty Walking, Weakness, Gait Disturbance. Denies: Confusion, Dizziness, Numbness, Paresthesia, Seizure, Tingling Hematologic/Lymphatic: Reports: No Symptoms Immunologic: Reports: No Symptoms Exam - Exam Exam: See Below - Vital Signs Vital Signs: Last Vital Signs Temp 36.3 C 10/06/17 17:02 Pulse 66 10/06/17 17:02 Resp 18 10/06/17 17:02 BP 135/79 10/06/17 17:02 Pulse Ox 98 10/06/17 17:02 Weight: 97.522 kg - Exam General: Alert, Oriented, Cooperative. No: Mild Distress HEENT: Conjunctiva Clear, EACs Clear, EOMI, Hearing Intact, Mucosa Moist & R[place] , Nares Patent, Normal Nasal Septum, Posterior Pharynx Clear, Pupils Equal, Pupils Reactive Neck: Supple, Trachea Midline, +2 Carotid Pulse wo Bruit, Full Range of Motion Lungs: Clear to Auscultation, Normal Respiratory Effort Cardiovascular: Regular Rate, Regular Rhythm GI/Abdominal Exam: Normal Bowel Sounds, Soft, Non-Tender, No Organomegaly, No Distention, No Abnormal Bruit, No Mass, Pelvis Stable (Male) Exam: Deferred Rectal (Males) Exam: Deferred Back Exam: Normal Inspection, Decreased Range of Motion Extremities: Normal Inspection, Normal Range of Motion (Left leg), Non-Tender ( left lower extremity), No Pedal Edema, Normal Capillary Refill, Leg Pain (right hip ), Limited Range of Motion (right leg), Other (Pain with movement on right leg). No: Mottled, Redness Peripheral Pulses: 2+: Posterior Tibial (L), Posterior Tibial (R), Dorsalis Pedis (L), Dorsalis Pedis (R) Skin: Warm, Dry, Intact Neuro Extensive - Mental Status: Oriented x3, Normal Cognition, Memory Intact Neuro Extensive - Motor, Sensory, Reflexes: CN II-XII Intact (limited but groslly intact), Abnormal Gait, Other (baseline right sided hemiparesis). No: Motor/Sensory Deficits Psychiatric: Alert, Normal Affect, Normal Mood - Patient Data Result Diagrams: 10/06/17 17:50 10/06/17 17:50 EKG INTERPRETATION EKG Date: 10/06/17 Time: 07:45 Rhythm: Other (Sinus Rhythm) Rate (Beats/Min): 76 QRS: RBBB *Q Meaningful Use (ADM) - VTE *Q VTE Criteria *Q: - Stroke *Q Stroke Criteria *Q: - AMI *Q AMI Criteria *Q: Problem List Initiated/Reviewed/Updated: Yes Orders Last 24hrs: Active Orders 24 hr Category Date Time Status Admission Status [Patient Status] [ADT] Routine ADT 10/06/17 19:58 Active Cardiac Monitoring [RC] . DIRECTED Care 10/06/17 19:58 Active Medication Orders Sodium Chloride (Normal Saline) 1,000 mls @ 150 mls/hr IV ASDIRECTED JOSE RAFAEL Last Admin: 10/06/17 19:32 Dose: 150 mls/hr Assessment/Plan Comment:: Assessment/Plan: Acute: Right Inter-Trochanteric Fracture - 2/2 Mechanical Fall - Fall Precautions - Ortho consulted - PRN Pain medication Pre-Operative Risk Stratification - Risk factors: CAD S/p 5 Vessel CABG in 1997, HLD, HTN, Hx/o [place] in 1996, [place] , Restrictive Lung Disease, DM2, Chronic Thrombocytopenia and Hyperkalemia - METS <4, SVS, EKG/CXR: benign - Physical exam fairly benign - No recent cardiac or lung eval - Has significant/advanced combined cardiac and lung disease based on medical hx - Based on the data provided, the patient carries a very high cardiac risk for intermediate surgical risk (relayed to on-call [employer]) - Patient and family understood his medical/surgical risks and the resources we have here in [place] Chronic: Impaired Vision AR CAD S/p 5 Vessel CABG in 1997 HD HTN [place] in 1996 [place] Restrictive Lung Disease Mediastinal and Hilar Lymphadenopathy Hx/o Hernia s.p Repair ED CVA with Right Sided Residual Deficits DM2 Hx/o Hyperthyroidism 2/2 Thyroid Mass Hypothyroidism S/p Thyroidectomy Thrombocytopenia Hyperkalemia Seborrheic Dermatitis Plan: Admit to Med-Surg w/ Tele Routine AM labs Resume Homed Meds PT/OT consult IS q2 awake after surgery H2B for GI ppx Ortho consult DVT ppx: SCDs for now Code status: DNR/DNI
[2017-10-06] MEDS ORDERED: TRIAMCINOLONE ACETONIDE TOP PRN (21:29)
[2017-10-06] MEDS ORDERED: ACETAMINOPHEN PO PRN (21:29)
[2017-10-06] MEDS ORDERED: DIPHENHYDRAMINE PO PRN (21:29)
[2017-10-06] MEDS ORDERED: Acetaminophen 325 MG Tab PO PRN (21:30)
[2017-10-06] MEDS ORDERED: Bisacodyl 5 MG Tab PO PRN (21:30)
[2017-10-06] MEDS ORDERED: LORazepam 2 MG/ML MDV IV PRN (21:30)
[2017-10-06] MEDS ORDERED: Ondansetron 4 MG/2 ML SDV IV PRN (21:30)
[2017-10-06] MEDS ORDERED: Promethazine 12.5 MG in Sodium Chloride 0.9% 50 ML IV PRN (21:30)
[2017-10-06] MEDS ORDERED: Albuterol/Ipratropium 3.0-0.5 MG/3 ML Neb Soln NEB PRN (21:30)
[2017-10-06] MEDS ORDERED: Temazepam 15 MG Cap PO PRN (21:30)
[2017-10-06] MEDS ORDERED: Polyethylene Glycol 3350 Powder 17 GM Packet PO PRN (21:30)
[2017-10-06] MEDS: Acetaminophen/HYDROcodone 325-5 MG Tab PO PRN (22:13)
[2017-10-06] MEDS ORDERED: Silver Sulfadiazine 1% Crm 50 GM Tube TOP PRN (22:15)
[2017-10-06] MEDS ORDERED: Silver Sulfadiazine 1% Crm 400 GM Jar TOP PRN (22:15)
[2017-10-07] MEDS ORDERED: 50% Dextrose in Water 50 ML Syringe IVPUSH PRN (00:35)
[2017-10-07] MEDS: Acetaminophen/HYDROcodone 325-5 MG Tab PO PRN ×5 (02:19→20:09)
[2017-10-07] MEDS: Sodium Chloride 0.9% 1,000 ML IV SCH ×2 (02:21→09:11)
[2017-10-07] MEDS: Levothyroxine 150 MCG Tab PO SCH (06:12)
[2017-10-07] MEDS: Insulin Aspart 100 Units/ML 3 ML Pen SUBCUT SCH ×4 (06:33→21:07)
--- NOTE | 2017-10-07 06:41 | CR ---
Pelvis and right hip: AP view of the pelvis was obtained as well as AP and frog-leg lateral views of the right hip. Comparison: No prior hip exam. Intertrochanteric fracture is noted within the right hip with mild varus angulation. Mild joint space narrowing is seen within both hips. Bony structures are osteopenic. No additional fracture or other bony abnormality is seen. Vascular calcification is present. Impression: 1. Intertrochanteric fracture with mild varus angulation. 2. Other incidental findings. Diagnostic code #3
--- NOTE | 2017-10-07 06:41 | CR ---
Chest: Portable view of the chest was obtained. Comparison: No prior chest x-ray. Heart size is normal. Tortuous thoracic aorta is seen. Nodular density is noted within the left lung base. Lungs otherwise are clear. Previous sternotomy noted. Surgical clips are seen at the base of the neck. Impression: 1. Nodular density within the left lung base. Noncontrast chest CT recommended sometime in the future to hopefully rule out mass. 2. Nothing acute is seen with other incidental findings. Diagnostic code #9
[2017-10-07] MEDS ORDERED: Ondansetron 4 MG Tab.DIS PO PRN (07:15)
[2017-10-07] MEDS: FLUTICASONE INH SCH ×2 (08:04→20:40)
[2017-10-07] MEDS: SALMETEROL INH SCH ×2 (08:04→20:40)
[2017-10-07] MEDS: Insulin Detemir 100 Units/ML 3 ML Pen SUBCUT SCH ×2 (08:38→20:26)
[2017-10-07] MEDS: Metoprolol Tartrate 25 MG Tab PO SCH ×2 (08:44→20:08)
[2017-10-07] MEDS: HYDROmorphone 1 MG/ML Syringe IVPUSH PRN ×2 (08:46→15:40)
[2017-10-07] MEDS ORDERED: Magnesium Oxide 400 MG Tab PO ONE (09:00)
[2017-10-07] MEDS ORDERED: Aspirin 81 MG Tab.EC PO SCH (09:00)
[2017-10-07] MEDS ORDERED: Rosuvastatin 10 MG Tab PO SCH (09:00)
[2017-10-07] MEDS ORDERED: UBIDECARENONE PO SCH (09:00)
[2017-10-07] MEDS: Losartan 25 MG Tab PO SCH (09:17)
[2017-10-07] MEDS: Multivitamins,Therapeutic Tab PO SCH ×2 (09:17→09:18)
--- NOTE | 2017-10-07 09:39 | PCM.PREANE ---
Preanesthetic Assessment - Anesthesia/Transfusion/Family Hx Anesthesia History: Prior Anesthesia Without Reaction Family History of Anesthesia Reaction: No Transfusion History: No Prior Transfusion(s) Intubation History: Unknown - Review of Systems General: No Symptoms Pulmonary: No Symptoms Cardiovascular: No Symptoms Gastrointestinal: No Symptoms Neurological: Change in Speech, Gait Disturbance Other: Reports: Diabetes (145 this AM), Thyroid Problems (removed this year) - Physical Assessment NPO Status Date: 10/06/17 NPO Status Time: 12:00 Pulse: 80 O2 Sat by Pulse Oximetry: 92 Respiratory Rate: 18 Blood Pressure: 136/60 Temperature: 36.7 C Vital Signs: Last Vital Signs Temp 36.7 C 10/07/17 08:22 Pulse 80 10/07/17 08:44 Resp 18 10/07/17 08:22 BP 136/60 10/07/17 09:17 Pulse Ox 92 L 10/07/17 08:22 Height: 1.8 m Weight: 100.743 kg ASA Class: 3 Mental Status: Alert & Oriented x3 Airway Class: Mallampati = 2 Dentition: Reports: Collins(s) Thyro-Mental Finger Breadths: 3 Mouth Opening Finger Breadths: 3 ROM/Head Extension: Full Lungs: Clear to Auscultation, Normal Respiratory Effort Cardiovascular: Regular Rate, Regular Rhythm, No Murmurs - Lab Values: Laboratory Last Values WBC 5.27 K/mm3 (4.23-9.07) 10/07/17 06:12 RBC 4.20 M/mm3 (4.63-6.08) L 10/07/17 06:12 Hgb 13.6 gm/L (13.7-17.5) L 10/07/17 06:12 Hct 40.4 % (40.1-51.0) 10/07/17 06:12 MCV 96.2 fl (79.0-92.2) H 10/07/17 06:12 MCH 32.4 pg (25.7-32.2) H 10/07/17 06:12 MCHC 33.7 g/dl (32.2-35.5) 10/07/17 06:12 RDW Std Deviation 42.0 fL (35.1-43.9) 10/07/17 06:12 Plt Count 121 K/mm3 (163-337) L 10/07/17 06:12 MPV 10.4 fl (9.4-12.3) 10/07/17 06:12 Neut % (Auto) 54.8 % (34.0-67.9) 10/07/17 06:12 Lymph % (Auto) 22.2 % (21.8-53.1) 10/07/17 06:12 Richardson % (Auto) 16.9 % (5.3-12.2) H 10/07/17 06:12 Eos % (Auto) 5.1 (0.8-7.0) 10/07/17 06:12 Baso % (Auto) 0.6 % (0.1-1.2) 10/07/17 06:12 Neut # (Auto) 2.89 K/mm3 (1.78-5.38) 10/07/17 06:12 Lymph # (Auto) 1.17 K/mm3 (1.32-3.57) L 10/07/17 06:12 Richardson # (Auto) 0.89 K/mm3 (0.30-0.82) H 10/07/17 06:12 Eos # (Auto) 0.27 K/mm3 (0.04-0.54) 10/07/17 06:12 Baso # (Auto) 0.03 K/mm3 (0.01-0.08) 10/07/17 06:12 Manual Slide Review Normal smear 10/07/17 06:12 PT 10.9 SECONDS (8.0-13.0) 10/06/17 17:50 INR 1.00 10/06/17 17:50 APTT 27 SECONDS (22-36) 10/06/17 17:50 Sodium 141 mEq/L (136-145) 10/07/17 06:12 Potassium 4.0 mEq/L (3.5-5.1) 10/07/17 06:12 Chloride 106 mEq/L (98-107) 10/07/17 06:12 Carbon Dioxide 25 mEq/L (21-32) 10/07/17 06:12 Anion Gap 14.0 (5-15) 10/07/17 06:12 BUN 20 mg/dL (7-18) H 10/07/17 06:12 Creatinine 1.1 mg/dL (0.7-1.3) 10/07/17 06:12 Est Cr Clr Drug Dosing 66.55 mL/min 10/07/17 06:12 Estimated GFR (MDRD) > 60 mL/min (>60) 10/07/17 06:12 BUN/Creatinine Ratio 18.2 (14-18) H 10/07/17 06:12 Glucose 158 mg/dL (80-115) H 10/07/17 06:12 POC Glucose 145 mg/dL (80-115) H 10/07/17 06:15 Hemoglobin A1c 6.80 % (4.50-6.20) H 10/07/17 06:52 Calcium 7.8 mg/dL (8.5-10.1) L 10/07/17 06:12 Magnesium 1.6 mg/dl (1.8-2.4) L 10/07/17 06:12 Total Bilirubin 0.6 mg/dL (0.2-1.0) 10/06/17 17:50 AST 23 U/L (15-37) 10/06/17 17:50 ALT 35 U/L (16-63) 10/06/17 17:50 Alkaline Phosphatase 99 U/L (46-116) 10/06/17 17:50 Total Protein 6.4 g/dl (6.4-8.2) 10/06/17 17:50 Albumin 3.4 g/dl (3.4-5.0) 10/06/17 17:50 Globulin 3.0 gm/dL 10/06/17 17:50 Albumin/Globulin Ratio 1.1 (1-2) 10/06/17 17:50 TSH 3rd Generation 2.518 uIU/mL (0.358-3.74) 10/07/17 06:52 Blood Type O POSITIVE 10/06/17 17:50 Gel Antibody Screen Negative 10/06/17 17:50 - Imaging/EKG Impressions: EKG INTERPRETATION EKG Date: 10/06/17 Time: 07:45 Rhythm: Other (Sinus Rhythm) Rate (Beats/Min): 76 QRS: RBBB Pt informed of increase risk of cardiac complications Pt request to have surgery at [facility] in [place] - Allergies Allergies/Adverse Reactions: Allergies Allergy/AdvReac Type Severity Reaction Status Date / Time ERICH Inhibitors AdvReac Cough Verified 10/06/17 23:07 - Blood Blood Available: Yes Product(s) Available: PRBC - Anesthesia Plan Pre-Op Medication Ordered: Beta Isis Beta Isis: Metoprolol Med Last Dose Date: 10/07/17 Med Last Dose Time: 08:40 - Acknowledgements Anesthesia Type Planned: Spinal Pt an Appropriate Candidate for the Planned Anesthesia: Yes Alternatives and Risks of Anesthesia Discussed w Pt/Guardian: Yes Pt/Guardian Understands and Agrees with Anesthesia Plan: Yes PreAnesthesia Questionnaire HEENT History: Reports: Allergic Rhinitis, Impaired Vision, Other (See Below) Other HEENT History: wears glasses Cardiovascular History: Reports: CAD, High Cholesterol, Hypertension, IA Respiratory History: Reports: Sleep Apnea Other Respiratory History: medialstinal and hilar lympadenopathy, restrictive lung disease Gastrointestinal History: Reports: Colon Polyp, Other (See Below) Other Gastrointestinal History: Hernia Genitourinary History: Reports: Other (See Below) Other Genitourinary History: erectile dysfunction COMPONENT LAB TECH History: Reports: None Musculoskeletal History: Reports: Fracture Other Musculoskeletal History: broken wrist Neurological History: Reports: CVA, Other (See Below) Other Neuro History: Right sided weakness Psychiatric History: Reports: None Endocrine/Metabolic History: Reports: Diabetes, Type II, Hyperthyroidism, Hypothyroidism Other Endocrine/Metabolic History: thyroid mass Hematologic History: Reports: Other (See Below) Other Hematologic History: thrombocytopenia, hyperkalemia Immunologic History: Reports: None Oncologic (Cancer) History: Reports: None Dermatologic History: Reports: Seborrheic Dermatitis - Infectious Disease History Infectious Disease History: Reports: Chicken Pox, Influenza - Past Surgical History Head Surgeries/Procedures: Reports: None Cardiovascular Surgical History: Reports: Coronary Artery Bypass GI Surgical History: Reports: Colonoscopy Endocrine Surgical History: Reports: Thyroidectomy - SUBSTANCE USE Smoking Status *Q: Never Smoker Tobacco Use Within Last Twelve Months: Cigarettes Second Hand Smoke Exposure: No Recreational Drug Use History: No - HOME MEDS Home Medications: Home Meds Acetaminophen/Diphenhydramine [Tylenol Pm Ex-Strength Caplet] 1 tab PO BEDTIME PRN 08/02/16 [History] Aspirin 162 mg PO DAILY 08/02/16 [History] Fluticasone/Salmeterol [Advair 250-50 Diskus] 1 puff INH BID 08/02/16 [History] Insulin Detemir [Levemir Flextouch] 6 units SQ BEDTIME 08/02/16 [History] Insulin Detemir [Levemir Flextouch] 26 units SQ QAM 08/02/16 [History] Metoprolol Tartrate 25 mg PO BID 08/02/16 [History] Multivitamin [Multivitamins] 1 each PO DAILY 08/02/16 [History] Olmesartan [Benicar] 5 mg PO DAILY 08/02/16 [History] Silver Sulfadiazine [Silvadene 1% Cream 20 GM] 1 applic TOP TID PRN 08/02/16 [ History] Triamcinolone Acetonide [Kenalog-10] 1 applic TOP BID PRN 08/02/16 [History] Ubidecarenone [Coq-10] 1 tab PO DAILY 08/02/16 [History] atorvaSTATin [Lipitor] 40 mg PO BEDTIME 08/02/16 [History] Levothyroxine 150 mcg PO DAILY 07/15/17 [History] Melatonin 10 mg PO BEDTIME 07/15/17 [History] - CURRENT (IN HOUSE) MEDS Current Meds: Current Medications Acetaminophen (Tylenol) 650 mg PO Q4H PRN PRN Reason: Pain (Mild 1-3)/fever Hydrocodone Bitart/Acetaminophen ([place] 325-5 Mg) 1 tab PO Q4H PRN PRN Reason: Pain (moderate 4-6) Last Admin: 10/07/17 06:11 Dose: 1 tab Albuterol/Ipratropium (Duoneb 3.0-0.5 Mg/3 Ml) 3 ml NEB Q4H PRN PRN Reason: Shortness Of Breath/wheezing Aspirin (Halfprin) 162 mg PO DAILY JOSE RAFAEL Bisacodyl (Dulcolax) 5 mg PO DAILY PRN PRN Reason: Constipation Dextrose/Water (Dextrose 50% In Water) 50 ml IVPUSH ASDIRECTED PRN PRN Reason: Hypoglycemia Docusate Sodium (Colace) 100 mg PO BID PRN PRN Reason: Constipation Hydromorphone HCl (Dilaudid) 1 mg IVPUSH Q4H PRN PRN Reason: Pain (severe 7-10) Last Admin: 10/07/17 08:46 Dose: 1 mg Sodium Chloride (Normal Saline) 1,000 mls @ 150 mls/hr IV ASDIRECTED JOSE RAFAEL Last Admin: 10/07/17 09:11 Dose: 150 mls/hr Insulin Aspart (Novolog) 0 unit SUBCUT QIDACANDBED [facility] PRN Reason: Protocol Last Admin: 10/07/17 06:33 Dose: Not Given Insulin Detemir (Levemir) 6 unit SUBCUT BEDTIME [facility] Insulin Detemir (Levemir) 26 unit SUBCUT QAM [facility] Last Admin: 10/07/17 08:38 Dose: 26 units Levothyroxine Sodium (Levothyroxine) 150 mcg PO DAILY@0600 [facility] Last Admin: 10/07/17 06:12 Dose: 150 mcg Lorazepam (Ativan) 0.5 mg IV Q6H PRN PRN Reason: Anxiety Losartan Potassium (Cozaar) 25 mg PO DAILY [facility] Last Admin: 10/07/17 09:17 Dose: Not Given Metoprolol Tartrate (Lopressor) 25 mg PO BID [facility] Last Admin: 10/07/17 08:44 Dose: 25 mg Multivitamins (Thera) 1 each PO DAILY [facility] Last Admin: 10/07/17 09:18 Dose: Not Given Ondansetron HCl (Zofran) 4 mg IV Q6H PRN PRN Reason: Nausea/Vomiting Ondansetron HCl (Zofran Odt) 4 mg PO Q4H PRN PRN Reason: Nausea/Vomiting Fluticasone/Salmeterol [Advair 250-50] 0 each INH BID [facility] Last Admin: 10/07/17 08:04 Dose: 1 each Polyethylene Glycol (Miralax) 17 gm PO DAILY PRN PRN Reason: Constipation Rosuvastatin Calcium (Crestor) 10 mg PO BEDTIME [facility] Senna/Docusate Sodium (Senna Plus) 1 tab PO BID PRN PRN Reason: Constipation Silver Sulfadiazine (Silvadene 1% Cream 50 Gm) 0 gm TOP TID PRN PRN Reason: SKIN COMPLICATIONS Temazepam (Restoril) 15 mg PO BEDTIME PRN PRN Reason: Sleep Discontinued Medications Hydromorphone HCl (Dilaudid) 0.5 mg IVPUSH NOW STA Stop: 10/06/17 17:59 Last Admin: 10/06/17 18:01 Dose: 0.5 mg Hydromorphone HCl (Dilaudid) 1 mg IVPUSH ONETIME ONE Stop: 10/06/17 18:32 Last Admin: 10/06/17 18:36 Dose: 1 mg Promethazine HCl 12.5 mg/ (Sodium Chloride) 50.5 mls @ 100 mls/hr IV Q6H PRN PRN Reason: Nausea/Vomiting Magnesium Oxide (Magnesium Oxide) 800 mg PO ONETIME ONE Stop: 10/07/17 09:01 Last Admin: 10/07/17 09:17 Dose: Not Given Non-Formulary Medication (Acetaminophen/Diphenhydramine) 1 tab PO BEDTIME PRN PRN Reason: Insomnia Non-Formulary Medication (Melatonin [Melatonin]) 10 mg PO BEDTIME JOSE RAFAEL Non-Formulary Medication (Triamcinolone Acetonide [Kenalog-10]) 1 applic TOP BID PRN PRN Reason: skin complications Non-Formulary Medication (Ubidecarenone) 1 tab PO DAILY JOSE RAFAEL Rosuvastatin Calcium (Crestor) 10 mg PO DAILY JOSE RAFAEL Silver Sulfadiazine (Silvadene 1% Cream 400 Gm) 0 gm TOP TID PRN PRN Reason: SKIN COMPLICATIONS
[2017-10-07] MEDS ORDERED: ceFAZolin 1 GM Vial ONE (10:43)
[2017-10-07] MEDS ORDERED: fentaNYL 100 MCG/2 ML SDV ONE (10:43)
[2017-10-07] MEDS ORDERED: Propofol 200 MG/20 ML SDV ONE ×3 (10:43→12:25)
[2017-10-07] MEDS ORDERED: Ondansetron 4 MG/2 ML SDV ONE (10:43)
[2017-10-07] MEDS ORDERED: Midazolam 1 MG/ML 2 ML SDV ONE (10:43)
[2017-10-07] MEDS ORDERED: Lidocaine 1% 4 ML ONE (10:43)
--- NOTE | 2017-10-07 10:47 | PCM.PN ---
- General Info Date of Service: 10/07/17 Admission Dx/Problem (Free Text): Admission Diagnosis/Problem Admission Diagnosis/Problem Intertrochanteric fracture, hip Patient and are seen this morning. He is doing well, pain to hip is controlled with pain medications currently. Dr. Prado reviewed with patient and last evening that he is high cardiac risk for planned ORIF of hip fx. He would like to proceed with surgery here in [place]. I review again with patient and , cardiac concerns postoperatively. They both are very informed and wish to proceed with surgery today with Dr. Tenorio. He has had hernia repair within the last 4 months here in [place] and did well intra and postoperatively; this poses less risk for this surgery. Edinson Goff CRNA was also in room for this discussion. Functional Status: Reports: Pain Controlled, Urinating. Denies: Tolerating Diet (NPO) - Review of Systems General: Denies: Fever HEENT: Reports: No Symptoms Pulmonary: Reports: No Symptoms. Denies: Shortness of Breath, Cough, Wheezing Cardiovascular: Reports: No Symptoms. Denies: Chest Pain, Palpitations, Dyspnea on Exertion Gastrointestinal: Reports: No Symptoms. Denies: Abdominal Pain, Nausea, Vomiting Genitourinary: Reports: No Symptoms Musculoskeletal: Reports: Leg Pain Neurological: Reports: No Symptoms Psychiatric: Reports: No Symptoms - Patient Data Vitals - Most Recent: Last Vital Signs Temp 98.1 F 10/07/17 09:48 Pulse 80 10/07/17 09:48 Resp 18 10/07/17 09:48 BP 136/60 10/07/17 09:48 Pulse Ox 92 L 10/07/17 09:48 Weight - Most Recent: 222 lb 1.6 oz I&O - Last 24 Hours: Intake & Output 10/06/17 10/07/17 10/07/17 22:59 06:59 14:59 Intake Total 1443 Output Total 600 Balance 843 Lab Results Last 24 Hours: Laboratory Results - last 24 hr 10/07/17 10/07/17 10/07/17 Range/Units 06:12 06:12 06:15 WBC 5.27 (4.23-9.07) K/mm3 RBC 4.20 L (4.63-6.08) M/mm3 Hgb 13.6 L (13.7-17.5) gm/L Hct 40.4 (40.1-51.0) % MCV 96.2 H (79.0-92.2) fl MCH 32.4 H (25.7-32.2) pg MCHC 33.7 (32.2-35.5) g/dl RDW Std Deviation 42.0 (35.1-43.9) fL Plt Count 121 L (163-337) K/mm3 MPV 10.4 (9.4-12.3) fl Neut % (Auto) 54.8 (34.0-67.9) % Lymph % (Auto) 22.2 (21.8-53.1) % [place] % (Auto) 16.9 H (5.3-12.2) % Eos % (Auto) 5.1 (0.8-7.0) Baso % (Auto) 0.6 (0.1-1.2) % Neut # (Auto) 2.89 (1.78-5.38) K/mm3 Lymph # (Auto) 1.17 L (1.32-3.57) K/mm3 [place] # (Auto) 0.89 H (0.30-0.82) K/mm3 Eos # (Auto) 0.27 (0.04-0.54) K/mm3 Baso # (Auto) 0.03 (0.01-0.08) K/mm3 Manual Slide Review Normal smear Sodium 141 (136-145) mEq/L Potassium 4.0 (3.5-5.1) mEq/L Chloride 106 (98-107) mEq/L Carbon Dioxide 25 (21-32) mEq/L Anion Gap 14.0 (5-15) BUN 20 H (7-18) mg/dL Creatinine 1.1 (0.7-1.3) mg/dL Est Cr Clr Drug Dosing 66.55 mL/min Estimated GFR (MDRD) > 60 (>60) mL/min BUN/Creatinine Ratio 18.2 H (14-18) Glucose 158 H (80-115) mg/dL POC Glucose 145 H (80-115) mg/dL Hemoglobin A1c (4.50-6.20) % Calcium 7.8 L (8.5-10.1) mg/dL Magnesium 1.6 L (1.8-2.4) mg/dl TSH 3rd Generation (0.358-3.74) uIU/mL 10/07/17 10/07/17 Range/Units 06:52 06:52 WBC (4.23-9.07) K/mm3 RBC (4.63-6.08) M/mm3 Hgb (13.7-17.5) gm/L Hct (40.1-51.0) % MCV (79.0-92.2) fl MCH (25.7-32.2) pg MCHC (32.2-35.5) g/dl RDW Std Deviation (35.1-43.9) fL Plt Count (163-337) K/mm3 MPV (9.4-12.3) fl Neut % (Auto) (34.0-67.9) % Lymph % (Auto) (21.8-53.1) % [place] % (Auto) (5.3-12.2) % Eos % (Auto) (0.8-7.0) Baso % (Auto) (0.1-1.2) % Neut # (Auto) (1.78-5.38) K/mm3 Lymph # (Auto) (1.32-3.57) K/mm3 [place] # (Auto) (0.30-0.82) K/mm3 Eos # (Auto) (0.04-0.54) K/mm3 Baso # (Auto) (0.01-0.08) K/mm3 Manual Slide Review Sodium (136-145) mEq/L Potassium (3.5-5.1) mEq/L Chloride (98-107) mEq/L Carbon Dioxide (21-32) mEq/L Anion Gap (5-15) BUN (7-18) mg/dL Creatinine (0.7-1.3) mg/dL Est Cr Clr Drug Dosing mL/min Estimated GFR (MDRD) (>60) mL/min BUN/Creatinine Ratio (14-18) Glucose (80-115) mg/dL POC Glucose (80-115) mg/dL Hemoglobin A1c 6.80 H (4.50-6.20) % Calcium (8.5-10.1) mg/dL Magnesium (1.8-2.4) mg/dl TSH 3rd Generation 2.518 (0.358-3.74) uIU/mL Med Orders - Current: Current Medications Acetaminophen (Tylenol) 650 mg PO Q4H PRN PRN Reason: Pain (Mild 1-3)/fever Hydrocodone Bitart/Acetaminophen ([place] 325-5 Mg) 1 tab PO Q4H PRN PRN Reason: Pain (moderate 4-6) Last Admin: 10/07/17 06:11 Dose: 1 tab Albuterol/Ipratropium (Duoneb 3.0-0.5 Mg/3 Ml) 3 ml NEB Q4H PRN PRN Reason: Shortness Of Breath/wheezing Aspirin (Halfprin) 162 mg PO DAILY [facility] Bisacodyl (Dulcolax) 5 mg PO DAILY PRN PRN Reason: Constipation Dextrose/Water (Dextrose 50% In Water) 50 ml IVPUSH ASDIRECTED PRN PRN Reason: Hypoglycemia Docusate Sodium (Colace) 100 mg PO BID PRN PRN Reason: Constipation Hydromorphone HCl (Dilaudid) 1 mg IVPUSH Q4H PRN PRN Reason: Pain (severe 7-10) Last Admin: 10/07/17 08:46 Dose: 1 mg Sodium Chloride (Normal Saline) 1,000 mls @ 150 mls/hr IV ASDIRECTED [facility] Last Admin: 10/07/17 09:11 Dose: 150 mls/hr Insulin Aspart (Novolog) 0 unit SUBCUT QIDACANDBED [facility] PRN Reason: Protocol Last Admin: 10/07/17 06:33 Dose: Not Given Insulin Detemir (Levemir) 6 unit SUBCUT BEDTIME [facility] Insulin Detemir (Levemir) 26 unit SUBCUT QAM [facility] Last Admin: 10/07/17 08:38 Dose: 26 units Levothyroxine Sodium (Levothyroxine) 150 mcg PO DAILY@0600 [facility] Last Admin: 10/07/17 06:12 Dose: 150 mcg Lorazepam (Ativan) 0.5 mg IV Q6H PRN PRN Reason: Anxiety Losartan Potassium (Cozaar) 25 mg PO DAILY [facility] Last Admin: 10/07/17 09:17 Dose: Not Given Metoprolol Tartrate (Lopressor) 25 mg PO BID [facility] Last Admin: 10/07/17 08:44 Dose: 25 mg Multivitamins (Thera) 1 each PO DAILY [facility] Last Admin: 10/07/17 09:18 Dose: Not Given Ondansetron HCl (Zofran) 4 mg IV Q6H PRN PRN Reason: Nausea/Vomiting Ondansetron HCl (Zofran Odt) 4 mg PO Q4H PRN PRN Reason: Nausea/Vomiting Fluticasone/Salmeterol [Advair 250-50] 0 each INH BID [facility] Last Admin: 10/07/17 08:04 Dose: 1 each Polyethylene Glycol (Miralax) 17 gm PO DAILY PRN PRN Reason: Constipation Rosuvastatin Calcium (Crestor) 10 mg PO BEDTIME [facility] Senna/Docusate Sodium (Senna Plus) 1 tab PO BID PRN PRN Reason: Constipation Silver Sulfadiazine (Silvadene 1% Cream 50 Gm) 0 gm TOP TID PRN PRN Reason: SKIN COMPLICATIONS Temazepam (Restoril) 15 mg PO BEDTIME PRN PRN Reason: Sleep Discontinued Medications Bupivacaine HCl (Marcaine 0.25%) Confirm Administered Dose 30 ml .ROUTE .STK- MED ONE Stop: 10/07/17 10:25 Cefazolin Sodium (Ancef) Confirm Administered Dose 2 gm .ROUTE .STK-MED ONE Stop: 10/07/17 10:44 Fentanyl (Sublimaze) Confirm Administered Dose 100 mcg .ROUTE .STK-MED ONE Stop: 10/07/17 10:44 Hydromorphone HCl (Dilaudid) 0.5 mg IVPUSH NOW STA Stop: 10/06/17 17:59 Last Admin: 10/06/17 18:01 Dose: 0.5 mg Hydromorphone HCl (Dilaudid) 1 mg IVPUSH ONETIME ONE Stop: 10/06/17 18:32 Last Admin: 10/06/17 18:36 Dose: 1 mg Promethazine HCl 12.5 mg/ (Sodium Chloride) 50.5 mls @ 100 mls/hr IV Q6H PRN PRN Reason: Nausea/Vomiting Lidocaine HCl (Xylocaine-Mpf 1%) Confirm Administered Dose 4 mls @ as directed .ROUTE .STK-MED ONE Stop: 10/07/17 10:44 Magnesium Oxide (Magnesium Oxide) 800 mg PO ONETIME ONE Stop: 10/07/17 09:01 Last Admin: 10/07/17 09:17 Dose: Not Given Midazolam HCl (Versed 1 Mg/Ml) Confirm Administered Dose 2 mg .ROUTE .STK-MED ONE Stop: 10/07/17 10:44 Non-Formulary Medication (Acetaminophen/Diphenhydramine) 1 tab PO BEDTIME PRN PRN Reason: Insomnia Non-Formulary Medication (Melatonin [Melatonin]) 10 mg PO BEDTIME [facility] Non-Formulary Medication (Triamcinolone Acetonide [Kenalog-10]) 1 applic TOP BID PRN PRN Reason: skin complications Non-Formulary Medication (Ubidecarenone) 1 tab PO DAILY [facility] Ondansetron HCl (Zofran) Confirm Administered Dose 4 mg .ROUTE .STK-MED ONE Stop: 10/07/17 10:44 Propofol (Diprivan 20 Ml) Confirm Administered Dose 200 mg .ROUTE .STK-MED ONE Stop: 10/07/17 10:44 Rosuvastatin Calcium (Crestor) 10 mg PO DAILY [facility] Silver Sulfadiazine (Silvadene 1% Cream 400 Gm) 0 gm TOP TID PRN PRN Reason: SKIN COMPLICATIONS - Exam Quality Assessment: DVT Prophylaxis (Teds/SCD's) General: Alert, Oriented, Cooperative, No Acute Distress HEENT: Pupils Equal, EOMI, Mucous Membr. Moist/[employer] Neck: Supple Lungs: Clear to Auscultation, Normal Respiratory Effort Cardiovascular: Regular Rate, Regular Rhythm GI/Abdominal Exam: Normal Bowel Sounds, Soft, Non-Tender (Male) Exam: Deferred Extremities: No Pedal Edema, Other (Teds/SCD's; CMS + and = distally) Neurological: No New Focal Deficit Psy/Mental Status: Alert, Normal Affect, Normal Mood - Problem List & Annotations (1) Intertrochanteric fracture, hip SNOMED Code(s): 310187330 Code(s): S72.143A - DISPLACED INTERTROCHANTERIC FRACTURE OF UNSP FEMUR, INIT Status: Acute Priority: High Current Visit: Yes (2) Fall at home SNOMED Code(s): 45676151 Code(s): W19.XXXA - UNSPECIFIED FALL, INITIAL ENCOUNTER; Y92.099 - UNSP PLACE IN OTH NON-INSTITUTIONAL RESIDENCE PLACE Status: Acute Priority: High Current Visit: Yes Qualifiers: Encounter type: initial encounter Qualified Code(s): W19.XXXA - Unspecified fall, initial encounter; Y92.099 - Unspecified place in other non- institutional residence as the place of occurrence of the external cause; Y92.099 - Unspecified place in other non-institutional residence as the place of occurrence of the external cause (3) CAD (coronary artery disease) SNOMED Code(s): 34810192 Code(s): I25.10 - ATHSCL HEART DISEASE OF [place] CORONARY ARTERY W/O ANG PCTRS Status: Chronic Priority: Medium Current Visit: Yes Qualifiers: Coronary Disease-Associated Artery/Lesion type: unspecified vessel or lesion type [place] vs. transplanted heart: crow heart Associated angina: without angina Qualified Code(s): I25.10 - Atherosclerotic heart disease of [place] coronary artery without angina pectoris (4) HTN (hypertension) SNOMED Code(s): 09058592 Code(s): I10 - ESSENTIAL (PRIMARY) HYPERTENSION Status: Chronic Priority : Medium Current Visit: Yes Qualifiers: Hypertension type: essential hypertension Qualified Code(s): I10 - Essential (primary) hypertension (5) HLD (hyperlipidemia) SNOMED Code(s): 87457260 Code(s): E78.5 - HYPERLIPIDEMIA, UNSPECIFIED Status: Chronic Priority: Low Current Visit: Yes Qualifiers: Hyperlipidemia type: unspecified Qualified Code(s): E78.5 - Hyperlipidemia , unspecified - Problem List Review Problem List Initiated/Reviewed/Updated: Yes - My Orders Last 24 Hours: My Active Orders 10/07/17 07:13 Consult to [place] [CONS] Routine 10/07/17 07:15 Ondansetron [Zofran ODT] 4 mg PO Q4H PRN 10/07/17 07:16 RT Incentive Spirometry [RC] Q2HWA Turn, Cough, Deep Breathe [RC] Q2HWA 10/08/17 07:12 Chest wo Cont [CT] Routine - Plan Plan:: Assessment/Plan: Acute: Right Inter-Trochanteric Fracture - 2/2 Mechanical Fall at home - Fall Precautions - Ortho consulted- Dr. Tenorio consulted, plan for ORIF today at 11:30 - Pain control Ortho to assume pain management and DVT prophylax s/p ORIF Pre-Operative Risk Stratification completed per Dr. Prado as noted below: - Risk factors: CAD S/p 5 Vessel CABG in 1997, HLD, HTN, Hx/o MT in 1996, [place], Restrictive Lung Disease, DM2, Chronic Thrombocytopenia and Hyperkalemia - METS <4, SVS - EKG/CXR: benign; - Physical exam fairly benign - No recent cardiac or lung eval---Does Follow with Cardiology and Pulmonology at [place] - Has significant/advanced combined cardiac and lung disease based on medical hx - Based on the data provided, the patient carries a very high cardiac risk for intermediate surgical risk (relayed to on-call [employer]) - Patient and family understood his medical/surgical risks and the resources we have here in [place] - Patient and wish to proceed with surgery here despite above noted discussion and known lack of Cardiology services -RT/IS/C&DB Q2H while awake -Hgb stable at 14.4-->13.6 today preoperatively Chronic: Resume Home medications postoperatively today: CAD S/p 5 Vessel CABG in 1997, AMI in 1996 HTN [place] Restrictive Lung Disease Mediastinal and Hilar Lymphadenopathy Hx/o Hernia s.p Repair within the last 4 months, tolerated surgery well CVA with Right Sided Residual Deficits DM2--A1C good at 6.8 Hx/o Hyperthyroidism 2/2 Thyroid Mass---recent thyroidectomy within the last 6+ months--TSH good at 2.518 Thrombocytopenia- chronic and stable Hyperkalemia- therapeutic and stable currently Seborrheic Dermatitis Visual loss ED Plan: Admit to Med-Surg w/ Tele Routine AM labs Resume Homed Meds PT/OT consult postoperatively IS q2 awake after surgery H2B for GI ppx Ortho consult- Dr. Tenorio--spoke with Dr. Tenorio this morning, updated on above noted POC and proceed with surgery today. DVT ppx: SCDs for now; DVT prophylax per Ortho after ORIF Code status: DNR/DNI PCP is Dr. Lorraine Bentley, Cardiology follows Katherine Wu PA-C with [facility] , Pulmonology is Dr. Leach.
[2017-10-07] MEDS ORDERED: Bupivacaine 0.25% 30 ML SDV ONE (11:23)
[2017-10-07] MEDS ORDERED: Phenylephrine 1% 10 MG/ML SDV ONE (11:32)
[2017-10-07] MEDS ORDERED: ePHEDrine 50 MG/ML SDV ONE (11:58)
[2017-10-07] MEDS ORDERED: Lactated Ringers 1,000 ML ONE (11:59)
[2017-10-07] MEDS: Bupivacaine 0.25% 30 ML SDV ONE ×2 (12:04→12:22)
[2017-10-07] MEDS ORDERED: fentaNYL 100 MCG/2 ML SDV IVPUSH PRN (12:45)
[2017-10-07] MEDS ORDERED: Lactated Ringers 500 ML IV ONE (12:45)
--- NOTE | 2017-10-07 12:48 | PCM.POSTAN ---
POST ANESTHESIA ASSESSMENT - MENTAL STATUS Mental Status: Alert, Oriented - VITAL SIGNS Pulse Rate: 89 SaO2: 91 Resp Rate: 18 Blood Pressure: 89/64 Temperature: 37.4 C - RESPIRATORY Respiratory Status: Respiratory Rate WNL, Airway Patent, O2 Saturation Stable, Supplemental Oxygen - CARDIOVASCULAR CV Status: Pulse Rate WNL, Blood Pressure Stable - GASTROINTESTINAL GI Status: No Symptoms - PAIN Pain Score: 0 - POST OP HYDRATION Hydration Status: Adequate & Stable - OBSERVATIONS Free Text/Narrative:: no anesthesia complications noted
--- NOTE | 2017-10-07 14:46 | CR ---
Right hip: 12 fluoroscopic spot views were obtained of the right hip in the operating room utilizing C-arm device. Comparison: Previous pelvis right hip exam of 10/06/17. Study shows placement of orthopedic hardware affixing previously noted intertrochanteric fracture. Tip of cannulated screw lies within the femoral head. Previously noted angulation has been corrected. Fluoroscopy time given as 103 seconds. Impression: 1. Operative study showing reduction and fixation of previous intertrochanteric fracture. Diagnostic code #2
[2017-10-07] MEDS: Magnesium Sulfate/Water 2 GM in Premix Bag 1 BAG IV ONE ×2 (15:44→16:48)
[2017-10-07] MEDS: Rosuvastatin 10 MG Tab PO SCH (20:08)
[2017-10-07] MEDS ORDERED: Non-Formulary Medication 1 Each (Melatonin [Melatonin] 10 MG) PO SCH (21:00)
[2017-10-08] MEDS: Acetaminophen/HYDROcodone 325-5 MG Tab PO PRN ×5 (00:30→21:31)
[2017-10-08] MEDS: Docusate Sodium 100 MG Cap PO PRN (04:15)
[2017-10-08] MEDS: Insulin Aspart 100 Units/ML 3 ML Pen SUBCUT SCH ×4 (06:12→21:34)
[2017-10-08] MEDS: Levothyroxine 150 MCG Tab PO SCH (06:19)
--- NOTE | 2017-10-08 06:29 | PCM.PN ---
- General Info Date of Service: 10/08/17 Admission Dx/Problem (Free Text): Admission Diagnosis/Problem Admission Diagnosis/Problem Intertrochanteric fracture, hip POD #1 ORIF rt hip fx. Review intraoperative images with patient and this morning. VSS. Working with therapies; moving a little better this morning Pain under fair control- ok at rest still "10/10" with any movement. Hgb 11.9 (13.6 preop), no CP, SOB, palpitations, dizziness. Functional Status: Reports: Tolerating Diet, Ambulating, Urinating, Incentive Spirometry. Denies: Pain Controlled (but is improved today), New Symptoms - Review of Systems General: Reports: No Symptoms HEENT: Reports: No Symptoms Pulmonary: Reports: No Symptoms. Denies: Shortness of Breath Cardiovascular: Reports: No Symptoms. Denies: Chest Pain, Palpitations, Dyspnea on Exertion, Lightheadedness Gastrointestinal: Reports: No Symptoms. Denies: Abdominal Pain, Nausea, Vomiting Genitourinary: Reports: No Symptoms Musculoskeletal: Reports: Leg Pain Skin: Reports: No Symptoms Neurological: Reports: No Symptoms Psychiatric: Reports: No Symptoms - Patient Data Vitals - Most Recent: Last Vital Signs Temp 98.8 F 10/08/17 03:54 Pulse 79 10/08/17 03:54 Resp 18 10/08/17 03:54 BP 111/72 10/08/17 03:54 Pulse Ox 97 10/08/17 03:54 Weight - Most Recent: 223 lb 9.6 oz I&O - Last 24 Hours: Intake & Output 10/07/17 10/07/17 10/08/17 14:59 22:59 06:59 Intake Total 285 064 9074 Output Total 344 091 0502 Balance 170 -90 655 Lab Results Last 24 Hours: Laboratory Results - last 24 hr 10/07/17 10/07/17 10/07/17 Range/Units 06:12 06:12 06:52 WBC 5.27 (4.23-9.07) K/mm3 RBC 4.20 L (4.63-6.08) M/mm3 Hgb 13.6 L (13.7-17.5) gm/L Hct 40.4 (40.1-51.0) % MCV 96.2 H (79.0-92.2) fl MCH 32.4 H (25.7-32.2) pg MCHC 33.7 (32.2-35.5) g/dl RDW Std Deviation 42.0 (35.1-43.9) fL Plt Count 121 L (163-337) K/mm3 MPV 10.4 (9.4-12.3) fl Neut % (Auto) 54.8 (34.0-67.9) % Lymph % (Auto) 22.2 (21.8-53.1) % [place] % (Auto) 16.9 H (5.3-12.2) % Eos % (Auto) 5.1 (0.8-7.0) Baso % (Auto) 0.6 (0.1-1.2) % Neut # (Auto) 2.89 (1.78-5.38) K/mm3 Lymph # (Auto) 1.17 L (1.32-3.57) K/mm3 [place] # (Auto) 0.89 H (0.30-0.82) K/mm3 Eos # (Auto) 0.27 (0.04-0.54) K/mm3 Baso # (Auto) 0.03 (0.01-0.08) K/mm3 Manual Slide Review Normal smear Sodium 141 (136-145) mEq/L Potassium 4.0 (3.5-5.1) mEq/L Chloride 106 (98-107) mEq/L Carbon Dioxide 25 (21-32) mEq/L Anion Gap 14.0 (5-15) BUN 20 H (7-18) mg/dL Creatinine 1.1 (0.7-1.3) mg/dL Est Cr Clr Drug Dosing 66.55 mL/min Estimated GFR (MDRD) > 60 (>60) mL/min BUN/Creatinine Ratio 18.2 H (14-18) Glucose 158 H (80-115) mg/dL POC Glucose (80-115) mg/dL Hemoglobin A1c (4.50-6.20) % Calcium 7.8 L (8.5-10.1) mg/dL Magnesium 1.6 L (1.8-2.4) mg/dl TSH 3rd Generation 2.518 (0.358-3.74) uIU/mL MRSA (PCR) 11/14/17 11/14/17 11/14/17 Range/Units 06:52 07:04 14:28 WBC (4.23-9.07) K/mm3 RBC (4.63-6.08) M/mm3 Hgb (13.7-17.5) gm/L Hct (40.1-51.0) % MCV (79.0-92.2) fl MCH (25.7-32.2) pg MCHC (32.2-35.5) g/dl RDW Std Deviation (35.1-43.9) fL Plt Count (163-337) K/mm3 MPV (9.4-12.3) fl Neut % (Auto) (34.0-67.9) % Lymph % (Auto) (21.8-53.1) % [place] % (Auto) (5.3-12.2) % Eos % (Auto) (0.8-7.0) Baso % (Auto) (0.1-1.2) % Neut # (Auto) (1.78-5.38) K/mm3 Lymph # (Auto) (1.32-3.57) K/mm3 [place] # (Auto) (0.30-0.82) K/mm3 Eos # (Auto) (0.04-0.54) K/mm3 Baso # (Auto) (0.01-0.08) K/mm3 Manual Slide Review Sodium (136-145) mEq/L Potassium (3.5-5.1) mEq/L Chloride (98-107) mEq/L Carbon Dioxide (21-32) mEq/L Anion Gap (5-15) BUN (7-18) mg/dL Creatinine (0.7-1.3) mg/dL Est Cr Clr Drug Dosing mL/min Estimated GFR (MDRD) (>60) mL/min BUN/Creatinine Ratio (14-18) Glucose (80-115) mg/dL POC Glucose 144 H (80-115) mg/dL Hemoglobin A1c 6.80 H (4.50-6.20) % Calcium (8.5-10.1) mg/dL Magnesium (1.8-2.4) mg/dl TSH 3rd Generation (0.358-3.74) uIU/mL MRSA (PCR) Negative 10/07/17 10/07/17 10/08/17 Range/Units 16:58 20:25 06:04 WBC (4.23-9.07) K/mm3 RBC (4.63-6.08) M/mm3 Hgb (13.7-17.5) gm/L Hct (40.1-51.0) % MCV (79.0-92.2) fl MCH (25.7-32.2) pg MCHC (32.2-35.5) g/dl RDW Std Deviation (35.1-43.9) fL Plt Count (163-337) K/mm3 MPV (9.4-12.3) fl Neut % (Auto) (34.0-67.9) % Lymph % (Auto) (21.8-53.1) % [place] % (Auto) (5.3-12.2) % Eos % (Auto) (0.8-7.0) Baso % (Auto) (0.1-1.2) % Neut # (Auto) (1.78-5.38) K/mm3 Lymph # (Auto) (1.32-3.57) K/mm3 [place] # (Auto) (0.30-0.82) K/mm3 Eos # (Auto) (0.04-0.54) K/mm3 Baso # (Auto) (0.01-0.08) K/mm3 Manual Slide Review Sodium (136-145) mEq/L Potassium (3.5-5.1) mEq/L Chloride (98-107) mEq/L Carbon Dioxide (21-32) mEq/L Anion Gap (5-15) BUN (7-18) mg/dL Creatinine (0.7-1.3) mg/dL Est Cr Clr Drug Dosing mL/min Estimated GFR (MDRD) (>60) mL/min BUN/Creatinine Ratio (14-18) Glucose (80-115) mg/dL POC Glucose 162 H 177 H 131 H (80-115) mg/dL Hemoglobin A1c (4.50-6.20) % Calcium (8.5-10.1) mg/dL Magnesium (1.8-2.4) mg/dl TSH 3rd Generation (0.358-3.74) uIU/mL MRSA (PCR) Med Orders - Current: Current Medications Acetaminophen (Tylenol) 650 mg PO Q4H PRN PRN Reason: Pain (Mild 1-3)/fever Hydrocodone Bitart/Acetaminophen ([place] 325-5 Mg) 1 - 2 tab PO Q4H PRN PRN Reason: Pain Last Admin: 10/08/17 04:13 Dose: 2 tab Albuterol/Ipratropium (Duoneb 3.0-0.5 Mg/3 Ml) 3 ml NEB Q4H PRN PRN Reason: Shortness Of Breath/wheezing Aspirin (Halfprin) 162 mg PO DAILY [facility] Bisacodyl (Dulcolax) 5 mg PO DAILY PRN PRN Reason: Constipation Dextrose/Water (Dextrose 50% In Water) 50 ml IVPUSH ASDIRECTED PRN PRN Reason: Hypoglycemia Docusate Sodium (Colace) 100 mg PO BID PRN PRN Reason: Constipation Last Admin: 10/08/17 04:15 Dose: 100 mg Hydromorphone HCl (Dilaudid) 1 mg IVPUSH Q4H PRN PRN Reason: Pain (severe 7-10) Last Admin: 10/07/17 15:40 Dose: 1 mg Insulin Aspart (Novolog) 0 unit SUBCUT QIDACANDBED [facility] PRN Reason: Protocol Last Admin: 10/08/17 06:12 Dose: Not Given Insulin Detemir (Levemir) 6 unit SUBCUT BEDTIME [facility] Last Admin: 10/07/17 20:26 Dose: 6 units Insulin Detemir (Levemir) 26 unit SUBCUT QAM [facility] Last Admin: 10/07/17 08:38 Dose: 26 units Levothyroxine Sodium (Levothyroxine) 150 mcg PO DAILY@0600 [facility] Last Admin: 10/08/17 06:19 Dose: 150 mcg Lorazepam (Ativan) 0.5 mg IV Q6H PRN PRN Reason: Anxiety Losartan Potassium (Cozaar) 25 mg PO DAILY [facility] Last Admin: 10/07/17 09:17 Dose: Not Given Metoprolol Tartrate (Lopressor) 25 mg PO BID [facility] Last Admin: 10/07/17 20:08 Dose: 25 mg Multivitamins (Thera) 1 each PO DAILY [facility] Last Admin: 10/07/17 09:18 Dose: Not Given Ondansetron HCl (Zofran) 4 mg IV Q6H PRN PRN Reason: Nausea/Vomiting Ondansetron HCl (Zofran Odt) 4 mg PO Q4H PRN PRN Reason: Nausea/Vomiting Fluticasone/Salmeterol [Advair 250-50] 0 each INH BID [facility] Last Admin: 10/07/17 20:40 Dose: 1 each Polyethylene Glycol (Miralax) 17 gm PO DAILY PRN PRN Reason: Constipation Rosuvastatin Calcium (Crestor) 10 mg PO BEDTIME [facility] Last Admin: 10/07/17 20:08 Dose: 10 mg Senna/Docusate Sodium (Senna Plus) 1 tab PO BID PRN PRN Reason: Constipation Silver Sulfadiazine (Silvadene 1% Cream 50 Gm) 0 gm TOP TID PRN PRN Reason: SKIN COMPLICATIONS Temazepam (Restoril) 15 mg PO BEDTIME PRN PRN Reason: Sleep Discontinued Medications Hydrocodone Bitart/Acetaminophen ([place] 325-5 Mg) 1 tab PO Q4H PRN PRN Reason: Pain (moderate 4-6) Last Admin: 10/07/17 14:47 Dose: 1 tab Bupivacaine HCl (Marcaine 0.25%) Confirm Administered Dose 30 ml .ROUTE .STK- MED ONE Stop: 10/07/17 10:25 Last Admin: 10/07/17 12:22 Dose: 20 ml Bupivacaine HCl (Marcaine 0.25%) Confirm Administered Dose 30 ml .ROUTE .STK- MED ONE Stop: 10/07/17 11:24 Cefazolin Sodium (Ancef) Confirm Administered Dose 2 gm .ROUTE .STK-MED ONE Stop: 10/07/17 10:44 Ephedrine Sulfate (Ephedrine Sulfate) Confirm Administered Dose 50 mg .ROUTE .STK-MED ONE Stop: 10/07/17 11:59 Fentanyl (Sublimaze) Confirm Administered Dose 100 mcg .ROUTE .STK-MED ONE Stop: 10/07/17 10:44 Fentanyl (Sublimaze) 50 mcg IVPUSH Q5M PRN PRN Reason: PAIN Stop: 10/07/17 16:00 Hydromorphone HCl (Dilaudid) 0.5 mg IVPUSH NOW STA Stop: 10/06/17 17:59 Last Admin: 10/06/17 18:01 Dose: 0.5 mg Hydromorphone HCl (Dilaudid) 1 mg IVPUSH ONETIME ONE Stop: 10/06/17 18:32 Last Admin: 10/06/17 18:36 Dose: 1 mg Sodium Chloride (Normal Saline) 1,000 mls @ 150 mls/hr IV ASDIRECTED JOSE RAFAEL Last Admin: 10/07/17 09:11 Dose: 150 mls/hr Promethazine HCl 12.5 mg/ (Sodium Chloride) 50.5 mls @ 100 mls/hr IV Q6H PRN PRN Reason: Nausea/Vomiting Lidocaine HCl (Xylocaine-Mpf 1%) Confirm Administered Dose 4 mls @ as directed .ROUTE .STK-MED ONE Stop: 10/07/17 10:44 Magnesium Sulfate 2 gm/ Premix 50 mls @ 25 mls/hr IV ONETIME ONE Stop: 10/07/17 18:59 Last Admin: 10/07/17 16:48 Dose: Not Given Lactated Ringer's (Ringers, Lactated) Confirm Administered Dose 1,000 mls @ as directed .ROUTE .STK-MED ONE Stop: 10/07/17 12:00 Lactated Ringer's (Ringers, Lactated) 500 mls @ 1,000 mls/hr IV .BOLUS ONE Stop: 10/07/17 13:14 Last Infusion: 10/07/17 13:02 Dose: Infused Magnesium Oxide (Magnesium Oxide) 800 mg PO ONETIME ONE Stop: 10/07/17 09:01 Last Admin: 10/07/17 09:17 Dose: Not Given Midazolam HCl (Versed 1 Mg/Ml) Confirm Administered Dose 2 mg .ROUTE .STK-MED ONE Stop: 10/07/17 10:44 Non-Formulary Medication (Acetaminophen/Diphenhydramine) 1 tab PO BEDTIME PRN PRN Reason: Insomnia Non-Formulary Medication (Melatonin [Melatonin]) 10 mg PO BEDTIME JOSE RAFAEL Non-Formulary Medication (Triamcinolone Acetonide [Kenalog-10]) 1 applic TOP BID PRN PRN Reason: skin complications Non-Formulary Medication (Ubidecarenone) 1 tab PO DAILY JOSE RAFAEL Ondansetron HCl (Zofran) Confirm Administered Dose 4 mg .ROUTE .STK-MED ONE Stop: 10/07/17 10:44 Phenylephrine HCl (Jagjit-Synephrine) Confirm Administered Dose 10 mg .ROUTE .STK- MED ONE Stop: 10/07/17 11:33 Propofol (Diprivan 20 Ml) Confirm Administered Dose 200 mg .ROUTE .STK-MED ONE Stop: 10/07/17 10:44 Propofol (Diprivan 20 Ml) Confirm Administered Dose 200 mg .ROUTE .STK-MED ONE Stop: 10/07/17 12:03 Propofol (Diprivan 20 Ml) Confirm Administered Dose 200 mg .ROUTE .STK-MED ONE Stop: 10/07/17 12:26 Rosuvastatin Calcium (Crestor) 10 mg PO DAILY JOSE RAFAEL Silver Sulfadiazine (Silvadene 1% Cream 400 Gm) 0 gm TOP TID PRN PRN Reason: SKIN COMPLICATIONS - Exam Quality Assessment: Supplemental Oxygen General: Alert, Oriented, No Acute Distress HEENT: Pupils Equal, EOMI, Mucous Membr. Moist/[place] Neck: Supple Lungs: Clear to Auscultation, Normal Respiratory Effort Cardiovascular: Regular Rate, Regular Rhythm GI/Abdominal Exam: Normal Bowel Sounds, Soft, Non-Tender (Male) Exam: Deferred Extremities: No Pedal Edema, Normal Capillary Refill, Other (Teds/SCD's and ice to rt hip) Peripheral Pulses: 2+: Dorsalis Pedis (L), Dorsalis Pedis (R) Neurological: No New Focal Deficit Psy/Mental Status: Alert, Normal Affect, Normal Mood - Problem List & Annotations (1) Intertrochanteric fracture, hip SNOMED Code(s): 843841572 Code(s): S72.143A - DISPLACED INTERTROCHANTERIC FRACTURE OF UNSP FEMUR, INIT Status: Acute Priority: High Current Visit: Yes (2) Fall at home SNOMED Code(s): 91880825 Code(s): W19.XXXA - UNSPECIFIED FALL, INITIAL ENCOUNTER; Y92.099 - UNSP PLACE IN OTH NON-INSTITUTIONAL RESIDENCE PLACE Status: Acute Priority: High Current Visit: Yes Qualifiers: Encounter type: initial encounter Qualified Code(s): W19.XXXA - Unspecified fall, initial encounter; Y92.099 - Unspecified place in other non- institutional residence as the place of occurrence of the external cause; Y92.099 - Unspecified place in other non-institutional residence as the place of occurrence of the external cause (3) CAD (coronary artery disease) SNOMED Code(s): 89794688 Code(s): I25.10 - ATHSCL HEART DISEASE OF [place] CORONARY ARTERY W/O ANG PCTRS Status: Chronic Priority: Medium Current Visit: Yes Qualifiers: Coronary Disease-Associated Artery/Lesion type: unspecified vessel or lesion type [place] vs. transplanted heart: [place] heart Associated angina: without angina Qualified Code(s): I25.10 - Atherosclerotic heart disease of [place] coronary artery without angina pectoris (4) HTN (hypertension) SNOMED Code(s): 53917590 Code(s): I10 - ESSENTIAL (PRIMARY) HYPERTENSION Status: Chronic Priority : Medium Current Visit: Yes Qualifiers: Hypertension type: essential hypertension Qualified Code(s): I10 - Essential (primary) hypertension (5) HLD (hyperlipidemia) SNOMED Code(s): 41695510 Code(s): E78.5 - HYPERLIPIDEMIA, UNSPECIFIED Status: Chronic Priority: Low Current Visit: Yes Qualifiers: Hyperlipidemia type: unspecified Qualified Code(s): E78.5 - Hyperlipidemia , unspecified - Problem List Review Problem List Initiated/Reviewed/Updated: Yes - My Orders Last 24 Hours: My Active Orders 10/07/17 07:13 Consult to [facility] [place] [CONS] Routine 10/07/17 07:15 Ondansetron [Zofran ODT] 4 mg PO Q4H PRN 10/07/17 07:16 RT Incentive Spirometry [RC] Q2HWA Turn, Cough, Deep Breathe [RC] Q2HWA 10/08/17 07:12 Chest wo Cont [CT] Routine - Plan Plan:: Assessment/Plan: Acute: Right Inter-Trochanteric Fracture--S/P ORIF, POD #1 - 2/2 Mechanical Fall at home - Fall Precautions - Ortho consulted- Dr. Tenorio - Pain control--is better today but still reports "09/02" when moving Ortho to assume pain management and DVT prophylax s/p ORIF Pre-Operative Risk Stratification completed per Dr. Prado as noted below: - Risk factors: CAD S/p 5 Vessel CABG in 1997, HLD, HTN, Hx/o ID in 1996, [place], Restrictive Lung Disease, DM2, Chronic Thrombocytopenia and Hyperkalemia - METS <4, SVS - EKG/CXR: benign; - Physical exam fairly benign - No recent cardiac or lung eval---Does Follow with Cardiology and Pulmonology at [facility] - Has significant/advanced combined cardiac and lung disease based on medical hx - Based on the data provided, the patient carries a very high cardiac risk for intermediate surgical risk (relayed to on-call [employer]) - Patient and family understood his medical/surgical risks and the resources we have here in [place] - Patient and wish to proceed with surgery here despite above noted discussion and known lack of Cardiology services -RT/IS/C&DB Q2H while awake -Hgb stable at 14.4-->13.6 preoperatively--> 11.9 Chronic: Resume Home medications postoperatively: CAD S/p 5 Vessel CABG in 1997, AMI in 1996 HTN- stable and controlled [place] Restrictive Lung Disease- Follows Pulmonology Mediastinal and Hilar Lymphadenopathy Hx/o Hernia s.p Repair within the last 4 months, tolerated surgery well 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 Tenorio DVT ppx: SCDs for now; DVT prophylax per Ortho after ORIF CM/SW for assist with DC planning: Cont current orders and POC today; plan for likely DC home with tomorrow if stable and continues to do well. Code status: DNR/DNI PCP is Dr. Lorraine Bentley, Cardiology follows Katherine Wu PA-C with [facility] , Pulmonology is Dr. Leach.
[2017-10-08] MEDS: Cyclobenzaprine 10 MG Tab PO PRN (08:33)
--- NOTE | 2017-10-08 08:54 | CT ---
CT chest Technique: Multiple axial sections through the chest were obtained. Intravenous contrast was not utilized. Comparison: Prior chest x-ray of 10/06/17. Findings: Slight pleural thickening is seen within both lung bases. Surgical clips are seen at the base of the neck. Previous sternotomy is noted. Mediastinum and hilar regions show no adenopathy. Atherosclerotic change is noted within the aorta. Ascending thoracic aorta is slightly aneurysmal at 4.6 cm in AP dimension. Descending thoracic aorta measures normal at 2.8 cm. Lungs show no nodule as suggested on chest x-ray. Chest x-ray finding most likely due to result atelectasis. No acute appearing pulmonary densities are seen. Bone window settings were reviewed showing scattered degenerative change throughout the spine with mild scoliosis. Impression: 1. Ascending thoracic aneurysm measuring 4.6 cm in AP dimension. 2. Mild pleural thickening within both lung bases. 3. No parenchymal nodule is seen as suggested on recent chest x-ray. Chest x-ray finding most likely due to atelectasis that has resolved. Diagnostic code #3
[2017-10-08] MEDS: SALMETEROL INH SCH ×2 (09:01→21:36)
[2017-10-08] MEDS: FLUTICASONE INH SCH ×2 (09:01→21:36)
[2017-10-08] MEDS: Multivitamins,Therapeutic Tab PO SCH (09:52)
[2017-10-08] MEDS: Metoprolol Tartrate 25 MG Tab PO SCH ×2 (09:52→21:31)
[2017-10-08] MEDS: Insulin Detemir 100 Units/ML 3 ML Pen SUBCUT SCH ×2 (09:57→21:38)
[2017-10-08] MEDS: Losartan 25 MG Tab PO SCH (09:57)
[2017-10-08] MEDS: HYDROmorphone 1 MG/ML Syringe IVPUSH PRN ×2 (09:58→14:20)
[2017-10-08] MEDS ORDERED: Aspirin 81 MG Tab.EC PO ONE (11:45)
[2017-10-08] MEDS: Aspirin 325 MG Tab.EC PO SCH ×2 (11:45→21:30)
--- NOTE | 2017-10-08 18:02 | PCM.SURGPN ---
- General Info Date of Service: 10/08/17 POD#: 1 Functional Status: Reports: Pain Controlled, Tolerating Diet, Ambulating, Urinating - Review of Systems Musculoskeletal: Reports: Other (The pt states he has noted muscle spasms at thigh. Flexeril was ordered per Hospitalist service.) - Patient Data Vitals - Most Recent: Last Vital Signs Temp 98.8 F 10/08/17 12:01 Pulse 85 10/08/17 12:01 Resp 20 10/08/17 12:01 BP 112/60 10/08/17 12:01 Pulse Ox 92 L 10/08/17 15:40 Weight - Most Recent: 223 lb 9.6 oz I&O - Last 24 Hours: Intake & Output 10/08/17 10/08/17 10/08/17 06:59 14:59 22:59 Intake Total 1680 620 Output Total 1025 Balance 655 620 Lab Results Last 24 Hrs: Laboratory Results - last 24 hr 10/07/17 10/08/17 10/08/17 Range/Units 20:25 05:55 05:55 WBC 5.53 (4.23-9.07) K/mm3 RBC 3.69 L (4.63-6.08) M/mm3 Hgb 11.9 L (13.7-17.5) gm/L Hct 35.9 L (40.1-51.0) % MCV 97.3 H (79.0-92.2) fl MCH 32.2 (25.7-32.2) pg MCHC 33.1 (32.2-35.5) g/dl RDW Std Deviation 42.7 (35.1-43.9) fL Plt Count 99 L (163-337) K/mm3 MPV 10.3 (9.4-12.3) fl Neut % (Auto) 60.8 (34.0-67.9) % Lymph % (Auto) 16.3 L (21.8-53.1) % [place] % (Auto) 13.7 H (5.3-12.2) % Eos % (Auto) 8.3 H (0.8-7.0) Baso % (Auto) 0.5 (0.1-1.2) % Neut # (Auto) 3.36 (1.78-5.38) K/mm3 Lymph # (Auto) 0.90 L (1.32-3.57) K/mm3 [place] # (Auto) 0.76 (0.30-0.82) K/mm3 Eos # (Auto) 0.46 (0.04-0.54) K/mm3 Baso # (Auto) 0.03 (0.01-0.08) K/mm3 Manual Slide Review Abnormal smear Sodium 138 (136-145) mEq/L Potassium 4.3 (3.5-5.1) mEq/L Chloride 105 (98-107) mEq/L Carbon Dioxide 28 (21-32) mEq/L Anion Gap 9.3 (5-15) BUN 18 (7-18) mg/dL Creatinine 1.0 (0.7-1.3) mg/dL Est Cr Clr Drug Dosing 73.21 mL/min Estimated GFR (MDRD) > 60 (>60) mL/min BUN/Creatinine Ratio 18.0 (14-18) Glucose 150 H (80-115) mg/dL POC Glucose 177 H (80-115) mg/dL Calcium 7.7 L (8.5-10.1) mg/dL Magnesium 1.8 (1.8-2.4) mg/dl 10/08/17 10/08/17 10/08/17 Range/Units 06:04 11:59 17:08 WBC (4.23-9.07) K/mm3 RBC (4.63-6.08) M/mm3 Hgb (13.7-17.5) gm/L Hct (40.1-51.0) % MCV (79.0-92.2) fl MCH (25.7-32.2) pg MCHC (32.2-35.5) g/dl RDW Std Deviation (35.1-43.9) fL Plt Count (163-337) K/mm3 MPV (9.4-12.3) fl Neut % (Auto) (34.0-67.9) % Lymph % (Auto) (21.8-53.1) % [place] % (Auto) (5.3-12.2) % Eos % (Auto) (0.8-7.0) Baso % (Auto) (0.1-1.2) % Neut # (Auto) (1.78-5.38) K/mm3 Lymph # (Auto) (1.32-3.57) K/mm3 [place] # (Auto) (0.30-0.82) K/mm3 Eos # (Auto) (0.04-0.54) K/mm3 Baso # (Auto) (0.01-0.08) K/mm3 Manual Slide Review Sodium (136-145) mEq/L Potassium (3.5-5.1) mEq/L Chloride (98-107) mEq/L Carbon Dioxide (21-32) mEq/L Anion Gap (5-15) BUN (7-18) mg/dL Creatinine (0.7-1.3) mg/dL Est Cr Clr Drug Dosing mL/min Estimated GFR (MDRD) (>60) mL/min BUN/Creatinine Ratio (14-18) Glucose (80-115) mg/dL POC Glucose 131 H 153 H 188 H (80-115) mg/dL Calcium (8.5-10.1) mg/dL Magnesium (1.8-2.4) mg/dl Med Orders - Current: Current Medications Acetaminophen (Tylenol) 650 mg PO Q4H PRN PRN Reason: Pain (Mild 1-3)/fever Hydrocodone Bitart/Acetaminophen ([place] 325-5 Mg) 1 - 2 tab PO Q4H PRN PRN Reason: Pain Last Admin: 10/08/17 13:31 Dose: 2 tab Albuterol/Ipratropium (Duoneb 3.0-0.5 Mg/3 Ml) 3 ml NEB Q4H PRN PRN Reason: Shortness Of Breath/wheezing Aspirin (Ecotrin) 325 mg PO BID [facility] Last Admin: 10/08/17 11:45 Dose: Not Given Bisacodyl (Dulcolax) 5 mg PO DAILY PRN PRN Reason: Constipation Cyclobenzaprine HCl (Flexeril) 10 mg PO Q8H PRN PRN Reason: Muscle Spasm Last Admin: 10/08/17 08:33 Dose: 10 mg Dextrose/Water (Dextrose 50% In Water) 50 ml IVPUSH ASDIRECTED PRN PRN Reason: Hypoglycemia Docusate Sodium (Colace) 100 mg PO BID PRN PRN Reason: Constipation Last Admin: 10/08/17 04:15 Dose: 100 mg Hydromorphone HCl (Dilaudid) 1 mg IVPUSH Q4H PRN PRN Reason: Pain (severe 7-10) Last Admin: 10/08/17 14:20 Dose: 1 mg Insulin Aspart (Novolog) 0 unit SUBCUT QIDACANDBED [facility] PRN Reason: Protocol Last Admin: 10/08/17 17:38 Dose: 1 unit Insulin Detemir (Levemir) 6 unit SUBCUT BEDTIME [facility] Last Admin: 10/07/17 20:26 Dose: 6 units Insulin Detemir (Levemir) 26 unit SUBCUT QAM [facility] Last Admin: 10/08/17 09:57 Dose: 26 units Levothyroxine Sodium (Levothyroxine) 150 mcg PO DAILY@0600 [facility] Last Admin: 10/08/17 06:19 Dose: 150 mcg Lorazepam (Ativan) 0.5 mg IV Q6H PRN PRN Reason: Anxiety Losartan Potassium (Cozaar) 25 mg PO DAILY [facility] Last Admin: 10/08/17 09:57 Dose: 25 mg Metoprolol Tartrate (Lopressor) 25 mg PO BID [facility] Last Admin: 10/08/17 09:52 Dose: 25 mg Multivitamins (Thera) 1 each PO DAILY [facility] Last Admin: 10/08/17 09:52 Dose: 1 each Ondansetron HCl (Zofran) 4 mg IV Q6H PRN PRN Reason: Nausea/Vomiting Ondansetron HCl (Zofran Odt) 4 mg PO Q4H PRN PRN Reason: Nausea/Vomiting Fluticasone/Salmeterol [Advair 250-50] 0 each INH BID [facility] Last Admin: 10/08/17 09:01 Dose: 1 each Polyethylene Glycol (Miralax) 17 gm PO DAILY PRN PRN Reason: Constipation Rosuvastatin Calcium (Crestor) 10 mg PO BEDTIME [facility] Last Admin: 10/07/17 20:08 Dose: 10 mg Senna/Docusate Sodium (Senna Plus) 1 tab PO BID PRN PRN Reason: Constipation Silver Sulfadiazine (Silvadene 1% Cream 50 Gm) 0 gm TOP TID PRN PRN Reason: SKIN COMPLICATIONS Temazepam (Restoril) 15 mg PO BEDTIME PRN PRN Reason: Sleep Discontinued Medications Hydrocodone Bitart/Acetaminophen ([place] 325-5 Mg) 1 tab PO Q4H PRN PRN Reason: Pain (moderate 4-6) Last Admin: 10/07/17 14:47 Dose: 1 tab Aspirin (Halfprin) 162 mg PO DAILY [facility] Aspirin (Halfprin) 162 mg PO ONETIME ONE Stop: 10/08/17 11:46 Last Admin: 10/08/17 11:38 Dose: 162 mg Bupivacaine HCl (Marcaine 0.25%) Confirm Administered Dose 30 ml .ROUTE .STK- MED ONE Stop: 10/07/17 10:25 Last Admin: 10/07/17 12:22 Dose: 20 ml Bupivacaine HCl (Marcaine 0.25%) Confirm Administered Dose 30 ml .ROUTE .STK- MED ONE Stop: 10/07/17 11:24 Cefazolin Sodium (Ancef) Confirm Administered Dose 2 gm .ROUTE .STK-MED ONE Stop: 10/07/17 10:44 Ephedrine Sulfate (Ephedrine Sulfate) Confirm Administered Dose 50 mg .ROUTE .STK-MED ONE Stop: 10/07/17 11:59 Fentanyl (Sublimaze) Confirm Administered Dose 100 mcg .ROUTE .STK-MED ONE Stop: 10/07/17 10:44 Fentanyl (Sublimaze) 50 mcg IVPUSH Q5M PRN PRN Reason: PAIN Stop: 10/07/17 16:00 Hydromorphone HCl (Dilaudid) 0.5 mg IVPUSH NOW STA Stop: 10/06/17 17:59 Last Admin: 10/06/17 18:01 Dose: 0.5 mg Hydromorphone HCl (Dilaudid) 1 mg IVPUSH ONETIME ONE Stop: 10/06/17 18:32 Last Admin: 10/06/17 18:36 Dose: 1 mg Sodium Chloride (Normal Saline) 1,000 mls @ 150 mls/hr IV ASDIRECTED [facility]FA[facility] Last Admin: 10/07/17 09:11 Dose: 150 mls/hr Promethazine HCl 12.5 mg/ (Sodium Chloride) 50.5 mls @ 100 mls/hr IV Q6H PRN PRN Reason: Nausea/Vomiting Lidocaine HCl (Xylocaine-Mpf 1%) Confirm Administered Dose 4 mls @ as directed .ROUTE .STK-MED ONE Stop: 10/07/17 10:44 Magnesium Sulfate 2 gm/ Premix 50 mls @ 25 mls/hr IV ONETIME ONE Stop: 10/07/17 18:59 Last Admin: 10/07/17 16:48 Dose: Not Given Lactated Ringer's (Ringers, Lactated) Confirm Administered Dose 1,000 mls @ as directed .ROUTE .STK-MED ONE Stop: 10/07/17 12:00 Lactated Ringer's (Ringers, Lactated) 500 mls @ 1,000 mls/hr IV .BOLUS ONE Stop: 10/07/17 13:14 Last Infusion: 10/07/17 13:02 Dose: Infused Magnesium Oxide (Magnesium Oxide) 800 mg PO ONETIME ONE Stop: 10/07/17 09:01 Last Admin: 10/07/17 09:17 Dose: Not Given Midazolam HCl (Versed 1 Mg/Ml) Confirm Administered Dose 2 mg .ROUTE .STK-MED ONE Stop: 10/07/17 10:44 Non-Formulary Medication (Acetaminophen/Diphenhydramine) 1 tab PO BEDTIME PRN PRN Reason: Insomnia Non-Formulary Medication (Melatonin [Melatonin]) 10 mg PO BEDTIME [facility] RAFAEL Non-Formulary Medication (Triamcinolone Acetonide [Kenalog-10]) 1 applic TOP BID PRN PRN Reason: skin complications Non-Formulary Medication (Ubidecarenone) 1 tab PO DAILY [facility] RAFAEL Ondansetron HCl (Zofran) Confirm Administered Dose 4 mg .ROUTE .STK-MED ONE Stop: 10/07/17 10:44 Phenylephrine HCl (Jagjit-Synephrine) Confirm Administered Dose 10 mg .ROUTE .STK- MED ONE Stop: 10/07/17 11:33 Propofol (Diprivan 20 Ml) Confirm Administered Dose 200 mg .ROUTE .STK-MED ONE Stop: 10/07/17 10:44 Propofol (Diprivan 20 Ml) Confirm Administered Dose 200 mg .ROUTE .STK-MED ONE Stop: 10/07/17 12:03 Propofol (Diprivan 20 Ml) Confirm Administered Dose 200 mg .ROUTE .STK-MED ONE Stop: 10/07/17 12:26 Rosuvastatin Calcium (Crestor) 10 mg PO DAILY [facility] Silver Sulfadiazine (Silvadene 1% Cream 400 Gm) 0 gm TOP TID PRN PRN Reason: SKIN COMPLICATIONS - Exam Wound/Incisions: Other (Mod shadowing on dressings. No acute bleeding noted.) General: Alert, Cooperative, No Acute Distress Lungs: Normal Respiratory Effort Extremities: Other (NVS intact for RLE. Right thigh soft. Rupesh's negative for RLE.) - Problem List Review Problem List Initiated/Reviewed/Updated: Yes - My Orders Last 24 Hours: Active Orders 24 hr Category Date Time Status BASIC METABOLIC PANEL,BMP [CHEM] AM Lab 10/09/17 05:11 Ordered CBC WITH AUTO DIFF [HEME] AM Lab 10/09/17 05:11 Ordered MAGNESIUM [CHEM] AM Lab 10/09/17 05:11 Ordered Aspirin [Ecotrin] Med 10/08/17 10:15 Active 325 mg PO BID Cyclobenzaprine [Flexeril] Med 10/08/17 08:06 Active 10 mg PO Q8H PRN Insulin Detemir [Levemir] Med 10/07/17 21:00 Active 6 unit SUBCUT BEDTIME Rosuvastatin [Crestor] Med 10/07/17 21:00 Active 10 mg PO BEDTIME Weight bearing status [OM.PC] Routine Oth 10/08/17 08:04 Ordered Medication Orders Acetaminophen (Tylenol) 650 mg PO Q4H PRN PRN Reason: Pain (Mild 1-3)/fever Hydrocodone Bitart/Acetaminophen ([place] 325-5 Mg) 1 - 2 tab PO Q4H PRN PRN Reason: Pain Last Admin: 10/08/17 13:31 Dose: 2 tab Admin: 10/08/17 08:33 Dose: 2 tab Admin: 10/08/17 04:13 Dose: 2 tab Admin: 10/08/17 00:30 Dose: 2 tab Admin: 10/07/17 20:09 Dose: 2 tab Admin: 10/07/17 15:48 Dose: 1 tab Albuterol/Ipratropium (Duoneb 3.0-0.5 Mg/3 Ml) 3 ml NEB Q4H PRN PRN Reason: Shortness Of Breath/wheezing Aspirin (Ecotrin) 325 mg PO BID [facility] Last Admin: 10/08/17 11:45 Dose: Bisacodyl (Dulcolax) 5 mg PO DAILY PRN PRN Reason: Constipation Cyclobenzaprine HCl (Flexeril) 10 mg PO Q8H PRN PRN Reason: Muscle Spasm Last Admin: 10/08/17 08:33 Dose: 10 mg Dextrose/Water (Dextrose 50% In Water) 50 ml IVPUSH ASDIRECTED PRN PRN Reason: Hypoglycemia Docusate Sodium (Colace) 100 mg PO BID PRN PRN Reason: Constipation Last Admin: 10/08/17 04:15 Dose: 100 mg Hydromorphone HCl (Dilaudid) 1 mg IVPUSH Q4H PRN PRN Reason: Pain (severe 7-10) Last Admin: 10/08/17 14:20 Dose: 1 mg Admin: 10/08/17 09:58 Dose: 1 mg Admin: 10/07/17 15:40 Dose: 1 mg Admin: 10/07/17 08:46 Dose: 1 mg Insulin Aspart (Novolog) 0 unit SUBCUT QIDACANDBED [facility] PRN Reason: Protocol Last Admin: 10/08/17 17:38 Dose: 1 unit Admin: 10/08/17 12:31 Dose: 1 unit Admin: 10/08/17 06:12 Dose: Admin: 10/07/17 21:07 Dose: 1 unit Admin: 10/07/17 17:33 Dose: 1 unit Admin: 10/07/17 12:10 Dose: Admin: 10/07/17 06:33 Dose: Insulin Detemir (Levemir) 6 unit SUBCUT BEDTIME [facility] Last Admin: 10/07/17 20:26 Dose: 6 units Insulin Detemir (Levemir) 26 unit SUBCUT QAM [facility] Last Admin: 10/08/17 09:57 Dose: 26 units Admin: 10/07/17 08:38 Dose: 26 units Levothyroxine Sodium (Levothyroxine) 150 mcg PO DAILY@0600 [facility] Last Admin: 10/08/17 06:19 Dose: 150 mcg Admin: 10/07/17 06:12 Dose: 150 mcg Lorazepam (Ativan) 0.5 mg IV Q6H PRN PRN Reason: Anxiety Losartan Potassium (Cozaar) 25 mg PO DAILY [facility] Last Admin: 10/08/17 09:57 Dose: 25 mg Admin: 10/07/17 09:17 Dose: Metoprolol Tartrate (Lopressor) 25 mg PO BID [facility] Last Admin: 10/08/17 09:52 Dose: 25 mg Admin: 10/07/17 20:08 Dose: 25 mg Admin: 10/07/17 08:44 Dose: 25 mg Multivitamins (Thera) 1 each PO DAILY [facility] Last Admin: 10/08/17 09:52 Dose: 1 each Admin: 10/07/17 09:18 Dose: Ondansetron HCl (Zofran) 4 mg IV Q6H PRN PRN Reason: Nausea/Vomiting Ondansetron HCl (Zofran Odt) 4 mg PO Q4H PRN PRN Reason: Nausea/Vomiting Fluticasone/Salmeterol [Advair 250-50] 0 each INH BID [facility] Last Admin: 10/08/17 09:01 Dose: 1 each Admin: 10/07/17 20:40 Dose: 1 each Admin: 10/07/17 08:04 Dose: 1 each Polyethylene Glycol (Miralax) 17 gm PO DAILY PRN PRN Reason: Constipation Rosuvastatin Calcium (Crestor) 10 mg PO BEDTIME [facility] Last Admin: 10/07/17 20:08 Dose: 10 mg Senna/Docusate Sodium (Senna Plus) 1 tab PO BID PRN PRN Reason: Constipation Silver Sulfadiazine (Silvadene 1% Cream 50 Gm) 0 gm TOP TID PRN PRN Reason: SKIN COMPLICATIONS Temazepam (Restoril) 15 mg PO BEDTIME PRN PRN Reason: Sleep - Assessment Assessment (Free Text/Narrative):: POD#1 - cephalomedullary nailing right hip for intertrochanteric fracture - Plan Plan (Free Text/Narrative):: 1. ASA 325mg BID. TEDs, SCDs. 2. Likely discharge to home tomorrow. 3. Continue with therapy. The pt's case was discussed with Dr. Tenorio.
--- NOTE | 2017-10-08 21:21 | PCM.CONS ---
H&P History of Present Illness - General Date of Service: 10/06/17 Admit Problem/Dx: Admission Diagnosis/Problem Admission Diagnosis/Problem Intertrochanteric fracture, hip POD #1 ORIF rt hip fx. Review intraoperative images with patient and this morning. VSS. Working with therapies; moving a little better this morning Pain under fair control- ok at rest still "10/10" with any movement. Hgb 11.9 (13.6 preop), no CP, SOB, palpitations, dizziness. 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 He had immediate pain and was unable to ambulate. He denies previous hip pain to the right hip before this. 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 He does have a walker that he uses for longer distances outside the home. He denies any other pain. He was taken to the Ed where he was found to have a right intertrochanteric hip fracture and was admitted to medicine and we were consulted. Right Hip Pain Score (Numeric/FACES): 5 - Related Data Allergies/Adverse Reactions: Allergies Allergy/AdvReac Type Severity Reaction Status Date / Time ERICH Inhibitors AdvReac Cough Verified 10/06/17 23:07 Home Medications: Home Meds Acetaminophen/Diphenhydramine [Tylenol Pm Ex-Strength Caplet] 1 tab PO BEDTIME PRN 08/02/16 [History] Aspirin 162 mg PO DAILY 08/02/16 [History] Fluticasone/Salmeterol [Advair 250-50 Diskus] 1 puff INH BID 08/02/16 [History] Insulin Detemir [Levemir Flextouch] 6 units SQ BEDTIME 08/02/16 [History] Insulin Detemir [Levemir Flextouch] 26 units SQ QAM 08/02/16 [History] Metoprolol Tartrate 25 mg PO BID 08/02/16 [History] Multivitamin [Multivitamins] 1 each PO DAILY 08/02/16 [History] Olmesartan [Benicar] 5 mg PO DAILY 08/02/16 [History] Silver Sulfadiazine [Silvadene 1% Cream 20 GM] 1 applic TOP TID PRN 08/02/16 [ History] Triamcinolone Acetonide [Kenalog-10] 1 applic TOP BID PRN 08/02/16 [History] Ubidecarenone [Coq-10] 1 tab PO DAILY 08/02/16 [History] atorvaSTATin [Lipitor] 40 mg PO BEDTIME 08/02/16 [History] Levothyroxine 150 mcg PO DAILY 07/15/17 [History] Melatonin 10 mg PO BEDTIME 07/15/17 [History] Past Medical History HEENT History: Reports: Allergic Rhinitis, Impaired Vision, Other (See Below) Other HEENT History: wears glasses Cardiovascular History: Reports: CAD, High Cholesterol, Hypertension, [place] Respiratory History: Reports: Sleep Apnea Other Respiratory History: medialstinal and hilar lympadenopathy, restrictive lung disease Gastrointestinal History: Reports: Colon Polyp, Other (See Below) Other Gastrointestinal History: Hernia Genitourinary History: Reports: Other (See Below) Other Genitourinary History: erectile dysfunction SOFTBALL UMPIRE History: Reports: None Musculoskeletal History: Reports: Fracture Other Musculoskeletal History: broken wrist Neurological History: Reports: CVA, Other (See Below) Other Neuro History: Right sided weakness Psychiatric History: Reports: None Endocrine/Metabolic History: Reports: Diabetes, Type II, Hyperthyroidism, Hypothyroidism Other Endocrine/Metabolic History: thyroid mass Hematologic History: Reports: Other (See Below) Other Hematologic History: thrombocytopenia, hyperkalemia Immunologic History: Reports: None Oncologic (Cancer) History: Reports: None Dermatologic History: Reports: Seborrheic Dermatitis - Infectious Disease History Infectious Disease History: Reports: Chicken Pox, Influenza - Past Surgical History Head Surgeries/Procedures: Reports: None Cardiovascular Surgical History: Reports: Coronary Artery Bypass GI Surgical History: Reports: Colonoscopy Endocrine Surgical History: Reports: Thyroidectomy Social & Family History - Family History Family Medical History: Noncontributory HEENT: Reports: Cataract, Impaired Vision Cardiac: Reports: Hypertension, [place] Musculoskeletal: Reports: Arthritis Other Musculoskeletal Family History: Hip replacement - father. Endocrine/Metabolic: Reports: Diabetes, type II, Hypothyroidism Other Endocrine/Metabolic Family History: Thyroid problems - dad, sister, and neices. Oncologic: Reports: Breast Other Oncologic Family History: Mother - breast cancer - Tobacco Use Smoking Status *Q: Never Smoker Years of Tobacco use: 30 Used Tobacco, but Quit: Yes Month Tobacco Last Used: 30 years ago Second Hand Smoke Exposure: No - Caffeine Use Caffeine Use: Reports: Coffee - Recreational Drug Use Recreational Drug Use: No Drug Use in Last 12 Months: No H&P Review of Systems - Review of Systems: Review Of Systems: ROS reveals no pertinent complaints other than HPI. Exam - Exam Exam: See Below - Vital Signs Vital Signs: Last Vital Signs Temp 37.1 C 10/08/17 19:39 Pulse 71 10/08/17 19:39 Resp 16 10/08/17 19:39 BP 110/63 10/08/17 19:39 Pulse Ox 94 L 10/08/17 19:39 Weight: 101.423 kg - Exam Physical Exam Comments:: Pelvis: stable to AP and lateral compression RLE: no tenderness to right knee, leg is shortened and externally rotated compared to the contralateral side, he is otherwise neurovascularly intact distally to the medial, lateral, plantar, first dorsal web space, 2+ distal pulses BUE: patient moving bilateral upper extremities with no signs of trauma - Patient Data Lab Results Last 24 hrs: Laboratory Results - last 24 hr 10/08/17 10/08/17 10/08/17 Range/Units 05:55 05:55 06:04 WBC 5.53 (4.23-9.07) K/mm3 RBC 3.69 L (4.63-6.08) M/mm3 Hgb 11.9 L (13.7-17.5) gm/L Hct 35.9 L (40.1-51.0) % MCV 97.3 H (79.0-92.2) fl MCH 32.2 (25.7-32.2) pg MCHC 33.1 (32.2-35.5) g/dl RDW Std Deviation 42.7 (35.1-43.9) fL Plt Count 99 L (163-337) K/mm3 MPV 10.3 (9.4-12.3) fl Neut % (Auto) 60.8 (34.0-67.9) % Lymph % (Auto) 16.3 L (21.8-53.1) % [place] % (Auto) 13.7 H (5.3-12.2) % Eos % (Auto) 8.3 H (0.8-7.0) Baso % (Auto) 0.5 (0.1-1.2) % Neut # (Auto) 3.36 (1.78-5.38) K/mm3 Lymph # (Auto) 0.90 L (1.32-3.57) K/mm3 [place] # (Auto) 0.76 (0.30-0.82) K/mm3 Eos # (Auto) 0.46 (0.04-0.54) K/mm3 Baso # (Auto) 0.03 (0.01-0.08) K/mm3 Manual Slide Review Abnormal smear Sodium 138 (136-145) mEq/L Potassium 4.3 (3.5-5.1) mEq/L Chloride 105 (98-107) mEq/L Carbon Dioxide 28 (21-32) mEq/L Anion Gap 9.3 (5-15) BUN 18 (7-18) mg/dL Creatinine 1.0 (0.7-1.3) mg/dL Est Cr Clr Drug Dosing 73.21 mL/min Estimated GFR (MDRD) > 60 (>60) mL/min BUN/Creatinine Ratio 18.0 (14-18) Glucose 150 H (80-115) mg/dL POC Glucose 131 H (80-115) mg/dL Calcium 7.7 L (8.5-10.1) mg/dL Magnesium 1.8 (1.8-2.4) mg/dl 10/08/17 10/08/17 10/08/17 Range/Units 11:59 17:08 20:58 WBC (4.23-9.07) K/mm3 RBC (4.63-6.08) M/mm3 Hgb (13.7-17.5) gm/L Hct (40.1-51.0) % MCV (79.0-92.2) fl MCH (25.7-32.2) pg MCHC (32.2-35.5) g/dl RDW Std Deviation (35.1-43.9) fL Plt Count (163-337) K/mm3 MPV (9.4-12.3) fl Neut % (Auto) (34.0-67.9) % Lymph % (Auto) (21.8-53.1) % [place] % (Auto) (5.3-12.2) % Eos % (Auto) (0.8-7.0) Baso % (Auto) (0.1-1.2) % Neut # (Auto) (1.78-5.38) K/mm3 Lymph # (Auto) (1.32-3.57) K/mm3 [place] # (Auto) (0.30-0.82) K/mm3 Eos # (Auto) (0.04-0.54) K/mm3 Baso # (Auto) (0.01-0.08) K/mm3 Manual Slide Review Sodium (136-145) mEq/L Potassium (3.5-5.1) mEq/L Chloride (98-107) mEq/L Carbon Dioxide (21-32) mEq/L Anion Gap (5-15) BUN (7-18) mg/dL Creatinine (0.7-1.3) mg/dL Est Cr Clr Drug Dosing mL/min Estimated GFR (MDRD) (>60) mL/min BUN/Creatinine Ratio (14-18) Glucose (80-115) mg/dL POC Glucose 153 H 188 H 129 H (80-115) mg/dL Calcium (8.5-10.1) mg/dL Magnesium (1.8-2.4) mg/dl Result Diagrams: 10/08/17 05:55 10/08/17 05:55 Consult PN Assessment/Plan Procedures: Procedures ASSAY OF LIPASE (07/15/17) COLONOSCOPY AND BIOPSY (08/05/16) COMPLETE CBC W/AUTO DIFF WBC (07/15/17) COMPREHEN METABOLIC PANEL (07/15/17) CT ABD & PELVIS W/O CONTRAST (07/15/17) EMERGENCY DEPT VISIT (07/15/17) GLUCOSE BLOOD TEST (08/13/17) HYDRATE IV INFUSION ADD-ON (07/15/17) MR-STAPH DNA AMP PROBE (07/17/17) PRP I/HAYLEE INIT REDUC >5 YR (08/13/17) REMOVAL OF SPERM CORD LESION (08/13/17) ROUTINE VENIPUNCTURE (07/15/17) THER/PROPH/DIAG INJ IV PUSH (07/15/17) TISSUE EXAM BY PATHOLOGIST (08/05/16) TX/PRO/DX INJ NEW DRUG ADDON (07/15/17) URINALYSIS AUTO W/SCOPE (07/15/17) Problem List Initiated/Reviewed/Updated: Yes Plan: A: Right intertrochanteric hip fracture P: At this time patient will be worked up from a medical stand point for surgery. The patient and his were informed that this is usually a fracture of necessity and will require surgical intervention to allow for independent ambulation again. Patient and had the risks, benefits, complications, and alternatives discusses and we will proceed with cephalomedullary nailing of the right hip when cleared medically. The patient will remain NPO and bed rest at this time. We will plan on surgical intervention sometimes in the next 24 hours.
--- NOTE | 2017-10-08 21:29 | PCM.OPNOTE ---
- General Post-Op/Procedure Note Date of Surgery/Procedure: 10/07/17 Operative Procedure(s): cephalomedullary nailing of right intertrochanteric hip fracture Pre Op Diagnosis: right intertrochanteric hip fracture Post-Op Diagnosis: Same Anesthesia Technique: Local, MAC, Spinal Primary Surgeon: Braeden Tenorio Anesthesia Provider: Eduin Goff Manager Community Development: Juju Aleman EBL in mLs: 450 Complications: None Condition: Good Free Text/Narrative:: Intake & Output 10/08/17 10/08/17 10/08/17 06:59 14:59 22:59 Intake Total 1680 620 500 Output Total 1025 650 Balance 658 172 -150
[2017-10-08] MEDS: Rosuvastatin 10 MG Tab PO SCH (21:31)
--- NOTE | 2017-10-08 22:38 | OR ---
DATE OF OPERATION: 10/07/2017 SURGEON: Braeden Tenorio MD OPERATION PERFORMED: Cephalomedullary nailing of right intertrochanteric hip fracture. PREOPERATIVE DIAGNOSIS: Right intertrochanteric hip fracture. POSTOPERATIVE DIAGNOSIS: Right intertrochanteric hip fracture. ANESTHESIA: Local MAC with spinal. ANESTHESIA PROVIDER: Eduin Goff CRNA. LICENSED MENTAL HEALTH COUNSELOR: Juju Aleman LPN. ESTIMATED BLOOD LOSS: 450 mL. COMPLICATIONS: None. CONDITION: Stable. DESCRIPTION OF PROCEDURE: The patient was identified in the preoperative holding area. Proper site was marked and identified by the surgeon. The patient was taken back to the operating theater where after adequate anesthesia with the spinal, the patient was placed supine on a traction table. Both limbs were placed in the traction boots. The left lower extremity had only gross traction applied and was placed in a dependent position. The right lower extremity had gross and then fine traction applied under C-arm fluoroscopy until it was reduced on both AP and lateral views. At this time, the right hip was then sterilely prepped and draped in the usual sterile fashion. OR time-out was performed. The patient received 2 g of IV Ancef. At this time, standard incision was made superior to greater trochanter. The guidepin, starting pin was placed at the tip of the greater trochanter. This was then placed intramedullary. Starting reamer was then used. A short Rob Gamma nail was then placed and was placed in proper position. At this time, the cephalic screw incision was made laterally and then the guidepin was placed up into the head and neck. It was noted to be in the center of the neck although was slightly anteriorly in the center of the head, but did tip apex distance on both AP and lateral views which showed to be less than 25 mm still. At this time, the step reamer was used to 110 mm and 110 mm cephalic lag screw was used. It was found to be in adequate position at this time. The distal interlock screw guide was placed. Incision was made. These were placed down and a drill was used to place this bicortically. A 6 x 5 x 40 mm screw was then placed distally and found to have bicortical contact. At this time, AP and lateral views showed anatomic reduction of the previous intertrochanteric hip fracture. At this time, all incisions were irrigated with normal saline, 0 Vicryl was used for closure of the gluteal fascia, 2-0 Vicryl was used subcutaneously and uche were used for the skin. Mepilex dressings were applied. The patient was sent to PACU in stable condition. MMODAL /[id number]
[2017-10-09] MEDS: Acetaminophen/HYDROcodone 325-5 MG Tab PO PRN ×3 (01:26→11:04)
[2017-10-09] MEDS: Levothyroxine 150 MCG Tab PO SCH (05:31)
[2017-10-09] MEDS: Docusate Sodium 100 MG Cap PO PRN (05:32)
[2017-10-09] MEDS: Insulin Aspart 100 Units/ML 3 ML Pen SUBCUT SCH ×2 (06:49→12:05)
[2017-10-09] MEDS: Cyclobenzaprine 10 MG Tab PO PRN (07:33)
[2017-10-09] MEDS: Losartan 25 MG Tab PO SCH (08:59)
[2017-10-09] MEDS: Metoprolol Tartrate 25 MG Tab PO SCH (09:01)
[2017-10-09] MEDS: Multivitamins,Therapeutic Tab PO SCH (09:01)
[2017-10-09] MEDS: Aspirin 325 MG Tab.EC PO SCH (09:02)
[2017-10-09] MEDS: Insulin Detemir 100 Units/ML 3 ML Pen SUBCUT SCH (09:03)
[2017-10-09] MEDS: SALMETEROL INH SCH (09:32)
[2017-10-09] MEDS: FLUTICASONE INH SCH (09:32)
--- NOTE | 2017-10-09 13:07 | PCM.DCSUM1 ---
Discharge Summary - Hospital Course Free Text/Narrative:: This is a 72 yo elderly white male with past medical hx/o Impaired Vision, AR, CAD S/p 5 Vessel CABG in 1997, HD, HTN, AR in 1996, KEYONNA not on CPAP, Restrictive Lung Disease, Hx/o Mediastinal and Hilar Lymphadenopathy, Hx/o Hernia S/p Repair, ED, DM2, Hx/o Hyperthyroidism 2/2 Thyroid Mass, Hypothyroidism S/p Thyroidectomy, Chronic Thrombocytopenia, Hyperkalemia and Seborrheic Dermatitis who comes in for an evaluation of hip pain after sustaining a mechanical fall that took place in his kitchen at home. Patient reports no prodromal symptoms. He admits to having bad socks that caused him to lose his balance, twist and fall. Patient carries a baseline right sided residual deficits form his hx/o Multiple CVA. His initial work up in ED, shows a CBC that is remarkable for RBC of 4.47, MCV of 94.4, platelet of 1:30, monocytes of 12.6%, and eosinophils of 7.4%. His PT is 10.9, INR of 1, APTT of 27. his chemistry is remarkable for BUN of 22, creatinine of 1.2, glucose of 156, and calcium of 8.3. Chest x-ray shows no acute abnormal findings but his hip x-ray shows right inter-trochanteric fracture. Patient is being admitted for acute right hip fracture. He is DNR/DNI. He was taken to OR by Dr. Tenorio, ORIF of right hip. Postoperatively he did well, no complications. Hgb maintained, other labs stable/WNL. VSS. He was working with PT/OT with slow progress. Recommendations were for SNF placement for rehab stay, patient and are in agreement. He will be DC'd to [facility] today for rehab stay. F/up with PCP, Dr. Bentley within one week and with Orthopedics as scheduled. - Discharge Data Discharge Date: 10/09/17 (admit date10/07/17) Discharge Disposition: DC/Tfer to SNF 03 Condition: Good - Discharge Diagnosis/Problem(s) (1) Intertrochanteric fracture, hip SNOMED Code(s): 561679766 ICD Code: S72.143A - DISPLACED INTERTROCHANTERIC FRACTURE OF UNSP FEMUR, INIT Status: Acute Priority: High Current Visit: Yes (2) Fall at home SNOMED Code(s): 09989769 ICD Code: W19.XXXA - UNSPECIFIED FALL, INITIAL ENCOUNTER; Y92.099 - UNSP PLACE IN OTH NON-INSTITUTIONAL RESIDENCE PLACE Status: Acute Priority: High Current Visit: Yes Qualifiers: Encounter type: initial encounter Qualified Code(s): W19.XXXA - Unspecified fall, initial encounter; Y92.099 - Unspecified place in other non- institutional residence as the place of occurrence of the external cause; Y92.099 - Unspecified place in other non-institutional residence as the place of occurrence of the external cause (3) CAD (coronary artery disease) SNOMED Code(s): 62133309 ICD Code: I25.10 - ATHSCL HEART DISEASE OF [place] CORONARY ARTERY W/O ANG PCTRS Status: Chronic Priority: Medium Current Visit: Yes Qualifiers: Coronary Disease-Associated Artery/Lesion type: unspecified vessel or lesion type [place] vs. transplanted heart: [place] heart Associated angina: without angina Qualified Code(s): I25.10 - Atherosclerotic heart disease of [place] coronary artery without angina pectoris (4) HTN (hypertension) SNOMED Code(s): 48494964 ICD Code: I10 - ESSENTIAL (PRIMARY) HYPERTENSION Status: Chronic Priority : Medium Current Visit: Yes Qualifiers: Hypertension type: essential hypertension Qualified Code(s): I10 - Essential (primary) hypertension (5) HLD (hyperlipidemia) SNOMED Code(s): 64740718 ICD Code: E78.5 - HYPERLIPIDEMIA, UNSPECIFIED Status: Chronic Priority: Low Current Visit: Yes Qualifiers: Hyperlipidemia type: unspecified Qualified Code(s): E78.5 - Hyperlipidemia , unspecified - Patient Summary/Data Operative Procedure(s) Performed: cephalomedullary nailing of right intertrochanteric hip fracture Complications: None Consults: Consultations 10/06/17 21:33 Consult to Case Management [CONS] Routine Consult to Physician [CONS] Routine Consult to Landscape Designer [CONS] Routine Consult to Spiritual Care [CONS] Routine OT Evaluation and Treatment [CONS] Routine PT Evaluation and Treatment [CONS] Routine Respiratory Care Assess and Treatment [CONS] Routine 10/07/17 07:13 Consult to Store Assistant [CONS] Routine Labs Pending at D/C: None Recommended Follow-up Testing/Procedures: Follow up with Dr. Bentley within one week of discharge Follow up with Orthopedics as scheduled Continue PT[facility]OT at [facility] Planned Operative Procedure(s) after DC: None Hospital Course: As above - Patient Instructions Diet: Heart Healthy Diet, Diabetic Diet Activity: Apply Ice, As Tolerated, Elevate Extremity, Full Weight Bearing Driving: Do Not Drive Showering/Bathing: May Shower Wound/Incision Care: Keep Operative Site/Wound Site Clean and Dry, Do NOT Change Dressing Notify Provider of: Fever, Increased Pain, Swelling and Redness, Drainage, Nausea and/or Vomiting Other/Special Instructions: Please get up and moving around every hour while awake. This helps to prevent blood clots. Please take 325mg aspirin twice daily - this also helps to prevent blood clots. The medication is being used for blood clot prevention and not for pain control, so please use the medication twice daily as directed. Please wear the BETTYE hose during the day and you may remove them at night. Please use the pain medication as needed. The medication may cause drowsiness and/or constipation. You could use a stool softener like docusate sodium or Colace 100mg twice daily and/or a laxative like Miralax daily for constipation. Contact your primary care provider for further instructions if you are constipated. Use the incentive spirometer often. Please place ice to the hip often. Please elevate the limb to decrease swelling. Keep the Mepilex dressing in place until follow-up. Please call [phone] with questions or concerns. - Discharge Plan Prescriptions/Med Rec: Acetaminophen/HYDROcodone [[place] 325-5 MG] 1 - 2 tab PO Q4H PRN #60 tablet PRN Reason: Pain Aspirin [Ecotrin] 325 mg PO BID #70 tab.ec Cyclobenzaprine [Flexeril] 10 mg PO Q8H PRN #40 tablet PRN Reason: muscle spasms Docusate Sodium [Colace] 100 mg PO BID PRN #60 cap PRN Reason: Constipation Docusate Sodium/Sennosides [Senna Plus] 1 tab PO BID PRN #60 tablet PRN Reason: constiation Home Medications: Home Meds Acetaminophen/Diphenhydramine [Tylenol Pm Ex-Strength Caplet] 1 tab PO BEDTIME PRN 08/02/16 [History] Fluticasone/Salmeterol [Advair 250-50 Diskus] 1 puff INH BID 08/02/16 [History] Insulin Detemir [Levemir Flextouch] 6 units SQ BEDTIME 08/02/16 [History] Insulin Detemir [Levemir Flextouch] 26 units SQ QAM 08/02/16 [History] Metoprolol Tartrate 25 mg PO BID 08/02/16 [History] Multivitamin [Multivitamins] 1 each PO DAILY 08/02/16 [History] Olmesartan [Benicar] 5 mg PO DAILY 08/02/16 [History] Silver Sulfadiazine [Silvadene 1% Cream 20 GM] 1 applic TOP TID PRN 08/02/16 [ History] Triamcinolone Acetonide [Kenalog-10] 1 applic TOP BID PRN 08/02/16 [History] Ubidecarenone [Coq-10] 1 tab PO DAILY 08/02/16 [History] atorvaSTATin [Lipitor] 40 mg PO BEDTIME 08/02/16 [History] Levothyroxine 150 mcg PO DAILY 07/15/17 [History] Melatonin 10 mg PO BEDTIME 07/15/17 [History] Acetaminophen/HYDROcodone [[place] 325-5 MG] 1 - 2 tab PO Q4H PRN #60 tablet 10/09 [Rx] Aspirin [Ecotrin] 325 mg PO BID #70 tab.ec 10/09/17 [Rx] Cyclobenzaprine [Flexeril] 10 mg PO Q8H PRN #40 tablet 10/09/17 [Rx] Docusate Sodium [Colace] 100 mg PO BID PRN #60 cap 10/09/17 [Rx] Docusate Sodium/Sennosides [Senna Plus] 1 tab PO BID PRN #60 tablet 10/09/17 [Rx ] Patient Handouts: Coronary Artery Disease, Male, Open Reduction and Internal Fixation for Hip Fracture, Care After, Chronic Obstructive Pulmonary Disease, [id number], Hypertension, [id number], Managing Your High Blood Pressure Referrals: Lorraine Bentley MD [Primary Care Provider] - Sunni Blount PA-C [Physician Conduit Mechanic] - - Discharge Summary/Plan Comment DC Time >30 min.: Yes (40 min) - General Info Date of Service: 10/09/17 Admission Dx/Problem (Free Text: Admission Diagnosis/Problem Admission Diagnosis/Problem Intertrochanteric fracture, hip POD #3 ORIF rt hip fx. VSS. Working with therapies; moving a little better this morning Pain under better control Labs stable Functional Status: Reports: Pain Controlled, Tolerating Diet, Ambulating (with assist), Urinating, Incentive Spirometry. Denies: New Symptoms - Review of Systems General: Reports: No Symptoms HEENT: Reports: No Symptoms Pulmonary: Reports: No Symptoms Cardiovascular: Reports: No Symptoms Gastrointestinal: Reports: No Symptoms Genitourinary: Reports: No Symptoms Musculoskeletal: Reports: Leg Pain Skin: Reports: No Symptoms Neurological: Reports: No Symptoms Psychiatric: Reports: No Symptoms - Patient Data Vitals - Most Recent: Last Vital Signs Temp 99.5 F 10/09/17 11:22 Pulse 73 10/09/17 11:22 Resp 18 10/09/17 11:22 BP 142/106 H 10/09/17 11:22 Pulse Ox 94 L 10/09/17 11:22 Weight - Most Recent: 225 lb 4.8 oz I&O - Last 24 hours: Intake & Output 10/08/17 10/09/17 10/09/17 22:59 06:59 14:59 Intake Total 500 800 0 Output Total 650 875 Balance -150 -75 0 Lab Results - Last 24 hrs: Laboratory Results - last 24 hr 10/08/17 10/08/17 10/09/17 Range/Units 17:08 20:58 06:19 WBC 5.45 (4.23-9.07) K/mm3 RBC 3.62 L (4.63-6.08) M/mm3 Hgb 11.9 L (13.7-17.5) gm/L Hct 35.1 L (40.1-51.0) % MCV 97.0 H (79.0-92.2) fl MCH 32.9 H (25.7-32.2) pg MCHC 33.9 (32.2-35.5) g/dl RDW Std Deviation 41.0 (35.1-43.9) fL Plt Count 97 L (163-337) K/mm3 MPV 10.8 (9.4-12.3) fl Neut % (Auto) 55.7 (34.0-67.9) % Lymph % (Auto) 19.3 L (21.8-53.1) % [place] % (Auto) 13.6 H (5.3-12.2) % Eos % (Auto) 10.8 H (0.8-7.0) Baso % (Auto) 0.4 (0.1-1.2) % Neut # (Auto) 3.04 (1.78-5.38) K/mm3 Lymph # (Auto) 1.05 L (1.32-3.57) K/mm3 [place] # (Auto) 0.74 (0.30-0.82) K/mm3 Eos # (Auto) 0.59 H (0.04-0.54) K/mm3 Baso # (Auto) 0.02 (0.01-0.08) K/mm3 Manual Slide Review Abnormal smear Sodium (136-145) mEq/L Potassium (3.5-5.1) mEq/L Chloride (98-107) mEq/L Carbon Dioxide (21-32) mEq/L Anion Gap (5-15) BUN (7-18) mg/dL Creatinine (0.7-1.3) mg/dL Est Cr Clr Drug Dosing mL/min Estimated GFR (MDRD) (>60) mL/min BUN/Creatinine Ratio (14-18) Glucose (80-115) mg/dL POC Glucose 188 H 129 H (80-115) mg/dL Calcium (8.5-10.1) mg/dL Magnesium (1.8-2.4) mg/dl 10/09/17 10/09/17 10/09/17 Range/Units 06:19 06:39 07:19 WBC (4.23-9.07) K/mm3 RBC (4.63-6.08) M/mm3 Hgb (13.7-17.5) gm/L Hct (40.1-51.0) % MCV (79.0-92.2) fl MCH (25.7-32.2) pg MCHC (32.2-35.5) g/dl RDW Std Deviation (35.1-43.9) fL Plt Count (163-337) K/mm3 MPV (9.4-12.3) fl Neut % (Auto) (34.0-67.9) % Lymph % (Auto) (21.8-53.1) % [place] % (Auto) (5.3-12.2) % Eos % (Auto) (0.8-7.0) Baso % (Auto) (0.1-1.2) % Neut # (Auto) (1.78-5.38) K/mm3 Lymph # (Auto) (1.32-3.57) K/mm3 [place] # (Auto) (0.30-0.82) K/mm3 Eos # (Auto) (0.04-0.54) K/mm3 Baso # (Auto) (0.01-0.08) K/mm3 Manual Slide Review Sodium 141 (136-145) mEq/L Potassium 4.1 (3.5-5.1) mEq/L Chloride 105 (98-107) mEq/L Carbon Dioxide 31 (21-32) mEq/L Anion Gap 9.1 (5-15) BUN 17 (7-18) mg/dL Creatinine 1.1 (0.7-1.3) mg/dL Est Cr Clr Drug Dosing 66.55 mL/min Estimated GFR (MDRD) > 60 (>60) mL/min BUN/Creatinine Ratio 15.5 (14-18) Glucose 77 L (80-115) mg/dL POC Glucose 69 L 147 H (80-115) mg/dL Calcium 8.0 L (8.5-10.1) mg/dL Magnesium 1.8 (1.8-2.4) mg/dl 11/16/17 Range/Units 12:01 WBC (4.23-9.07) K/mm3 RBC (4.63-6.08) M/mm3 Hgb (13.7-17.5) gm/L Hct (40.1-51.0) % MCV (79.0-92.2) fl MCH (25.7-32.2) pg MCHC (32.2-35.5) g/dl RDW Std Deviation (35.1-43.9) fL Plt Count (163-337) K/mm3 MPV (9.4-12.3) fl Neut % (Auto) (34.0-67.9) % Lymph % (Auto) (21.8-53.1) % [place] % (Auto) (5.3-12.2) % Eos % (Auto) (0.8-7.0) Baso % (Auto) (0.1-1.2) % Neut # (Auto) (1.78-5.38) K/mm3 Lymph # (Auto) (1.32-3.57) K/mm3 [place] # (Auto) (0.30-0.82) K/mm3 Eos # (Auto) (0.04-0.54) K/mm3 Baso # (Auto) (0.01-0.08) K/mm3 Manual Slide Review Sodium (136-145) mEq/L Potassium (3.5-5.1) mEq/L Chloride (98-107) mEq/L Carbon Dioxide (21-32) mEq/L Anion Gap (5-15) BUN (7-18) mg/dL Creatinine (0.7-1.3) mg/dL Est Cr Clr Drug Dosing mL/min Estimated GFR (MDRD) (>60) mL/min BUN/Creatinine Ratio (14-18) Glucose (80-115) mg/dL POC Glucose 166 H (80-115) mg/dL Calcium (8.5-10.1) mg/dL Magnesium (1.8-2.4) mg/dl Med Orders - Current: Current Medications Acetaminophen (Tylenol) 650 mg PO Q4H PRN PRN Reason: Pain (Mild 1-3)/fever Hydrocodone Bitart/Acetaminophen ([place] 325-5 Mg) 1 - 2 tab PO Q4H PRN PRN Reason: Pain Last Admin: 10/09/17 11:04 Dose: 2 tab Albuterol/Ipratropium (Duoneb 3.0-0.5 Mg/3 Ml) 3 ml NEB Q4H PRN PRN Reason: Shortness Of Breath/wheezing Aspirin (Ecotrin) 325 mg PO BID JOSE RAFAEL Last Admin: 10/09/17 09:02 Dose: 325 mg Bisacodyl (Dulcolax) 5 mg PO DAILY PRN PRN Reason: Constipation Cyclobenzaprine HCl (Flexeril) 10 mg PO Q8H PRN PRN Reason: Muscle Spasm Last Admin: 10/09/17 07:33 Dose: 10 mg Dextrose/Water (Dextrose 50% In Water) 50 ml IVPUSH ASDIRECTED PRN PRN Reason: Hypoglycemia Docusate Sodium (Colace) 100 mg PO BID PRN PRN Reason: Constipation Last Admin: 10/09/17 05:32 Dose: 100 mg Hydromorphone HCl (Dilaudid) 1 mg IVPUSH Q4H PRN PRN Reason: Pain (severe 7-10) Last Admin: 10/08/17 14:20 Dose: 1 mg Insulin Aspart (Novolog) 0 unit SUBCUT QIDACANDBED [facility] PRN Reason: Protocol Last Admin: 10/09/17 12:05 Dose: 1 unit Insulin Detemir (Levemir) 6 unit SUBCUT BEDTIME [facility] Last Admin: 10/08/17 21:38 Dose: 6 units Insulin Detemir (Levemir) 26 unit SUBCUT QAM [facility] Last Admin: 10/09/17 09:03 Dose: 15 units Levothyroxine Sodium (Levothyroxine) 150 mcg PO DAILY@0600 [facility] Last Admin: 10/09/17 05:31 Dose: 150 mcg Lorazepam (Ativan) 0.5 mg IV Q6H PRN PRN Reason: Anxiety Losartan Potassium (Cozaar) 25 mg PO DAILY [facility] Last Admin: 10/09/17 08:59 Dose: 25 mg Metoprolol Tartrate (Lopressor) 25 mg PO BID [facility] Last Admin: 10/09/17 09:01 Dose: 25 mg Multivitamins (Thera) 1 each PO DAILY [facility] Last Admin: 10/09/17 09:01 Dose: 1 each Ondansetron HCl (Zofran) 4 mg IV Q6H PRN PRN Reason: Nausea/Vomiting Ondansetron HCl (Zofran Odt) 4 mg PO Q4H PRN PRN Reason: Nausea/Vomiting Fluticasone/Salmeterol [Advair 250-50] 0 each INH BID [facility] Last Admin: 10/09/17 09:32 Dose: 1 each Polyethylene Glycol (Miralax) 17 gm PO DAILY PRN PRN Reason: Constipation Rosuvastatin Calcium (Crestor) 10 mg PO BEDTIME [facility] Last Admin: 10/08/17 21:31 Dose: 10 mg Senna/Docusate Sodium (Senna Plus) 1 tab PO BID PRN PRN Reason: Constipation Last Admin: 10/09/17 08:59 Dose: 1 tab Silver Sulfadiazine (Silvadene 1% Cream 50 Gm) 0 gm TOP TID PRN PRN Reason: SKIN COMPLICATIONS Temazepam (Restoril) 15 mg PO BEDTIME PRN PRN Reason: Sleep Discontinued Medications Hydrocodone Bitart/Acetaminophen ([place] 325-5 Mg) 1 tab PO Q4H PRN PRN Reason: Pain (moderate 4-6) Last Admin: 10/07/17 14:47 Dose: 1 tab Aspirin (Halfprin) 162 mg PO DAILY JOSE RAFAEL Aspirin (Halfprin) 162 mg PO ONETIME ONE Stop: 10/08/17 11:46 Last Admin: 10/08/17 11:38 Dose: 162 mg Bupivacaine HCl (Marcaine 0.25%) Confirm Administered Dose 30 ml .ROUTE .STK- MED ONE Stop: 10/07/17 10:25 Last Admin: 10/07/17 12:22 Dose: 20 ml Bupivacaine HCl (Marcaine 0.25%) Confirm Administered Dose 30 ml .ROUTE .STK- MED ONE Stop: 10/07/17 11:24 Cefazolin Sodium (Ancef) Confirm Administered Dose 2 gm .ROUTE .STK-MED ONE Stop: 10/07/17 10:44 Ephedrine Sulfate (Ephedrine Sulfate) Confirm Administered Dose 50 mg .ROUTE .STK-MED ONE Stop: 10/07/17 11:59 Fentanyl (Sublimaze) Confirm Administered Dose 100 mcg .ROUTE .STK-MED ONE Stop: 10/07/17 10:44 Fentanyl (Sublimaze) 50 mcg IVPUSH Q5M PRN PRN Reason: PAIN Stop: 10/07/17 16:00 Hydromorphone HCl (Dilaudid) 0.5 mg IVPUSH NOW STA Stop: 10/06/17 17:59 Last Admin: 10/06/17 18:01 Dose: 0.5 mg Hydromorphone HCl (Dilaudid) 1 mg IVPUSH ONETIME ONE Stop: 10/06/17 18:32 Last Admin: 10/06/17 18:36 Dose: 1 mg Sodium Chloride (Normal Saline) 1,000 mls @ 150 mls/hr IV ASDIRECTED JOSE RAFAEL Last Admin: 10/07/17 09:11 Dose: 150 mls/hr Promethazine HCl 12.5 mg/ (Sodium Chloride) 50.5 mls @ 100 mls/hr IV Q6H PRN PRN Reason: Nausea/Vomiting Lidocaine HCl (Xylocaine-Mpf 1%) Confirm Administered Dose 4 mls @ as directed .ROUTE .STK-MED ONE Stop: 10/07/17 10:44 Magnesium Sulfate 2 gm/ Premix 50 mls @ 25 mls/hr IV ONETIME ONE Stop: 10/07/17 18:59 Last Admin: 10/07/17 16:48 Dose: Not Given Lactated Ringer's (Ringers, Lactated) Confirm Administered Dose 1,000 mls @ as directed .ROUTE .STK-MED ONE Stop: 10/07/17 12:00 Lactated Ringer's (Ringers, Lactated) 500 mls @ 1,000 mls/hr IV .BOLUS ONE Stop: 10/07/17 13:14 Last Infusion: 10/07/17 13:02 Dose: Infused Magnesium Oxide (Magnesium Oxide) 800 mg PO ONETIME ONE Stop: 10/07/17 09:01 Last Admin: 10/07/17 09:17 Dose: Not Given Midazolam HCl (Versed 1 Mg/Ml) Confirm Administered Dose 2 mg .ROUTE .STK-MED ONE Stop: 10/07/17 10:44 Non-Formulary Medication (Acetaminophen/Diphenhydramine) 1 tab PO BEDTIME PRN PRN Reason: Insomnia Non-Formulary Medication (Melatonin [Melatonin]) 10 mg PO BEDTIME JOSE RAFAEL Non-Formulary Medication (Triamcinolone Acetonide [Kenalog-10]) 1 applic TOP BID PRN PRN Reason: skin complications Non-Formulary Medication (Ubidecarenone) 1 tab PO DAILY [facility] Ondansetron HCl (Zofran) Confirm Administered Dose 4 mg .ROUTE .STK-MED ONE Stop: 10/07/17 10:44 Phenylephrine HCl (Jagjit-Synephrine) Confirm Administered Dose 10 mg .ROUTE .STK- MED ONE Stop: 10/07/17 11:33 Propofol (Diprivan 20 Ml) Confirm Administered Dose 200 mg .ROUTE .STK-MED ONE Stop: 10/07/17 10:44 Propofol (Diprivan 20 Ml) Confirm Administered Dose 200 mg .ROUTE .STK-MED ONE Stop: 10/07/17 12:03 Propofol (Diprivan 20 Ml) Confirm Administered Dose 200 mg .ROUTE .STK-MED ONE Stop: 10/07/17 12:26 Rosuvastatin Calcium (Crestor) 10 mg PO DAILY JOSE RAFAEL Silver Sulfadiazine (Silvadene 1% Cream 400 Gm) 0 gm TOP TID PRN PRN Reason: SKIN COMPLICATIONS - Exam Quality Assessment: Reports: DVT Prophylaxis General: Reports: Alert, Oriented, Cooperative, No Acute Distress HEENT: Reports: Pupils Equal, Pupils Reactive, Mucous Membr. Moist/[place] Neck: Reports: Supple Lungs: Reports: Clear to Auscultation, Normal Respiratory Effort Cardiovascular: Reports: Regular Rate, Regular Rhythm GI/Abdominal Exam: Normal Bowel Sounds, Soft, Non-Tender (Male) Exam: Deferred Rectal (Males) Exam: Deferred Extremities: Other (Teds and SCD's; right hip/thigh is soft- dressing dry/ intact. CMS + and = bilat to LE) Neurological: Reports: No New Focal Deficit Psy/Mental Status: Reports: Alert, Normal Affect, Normal Mood *Q Meaningful Use (DIS) - VTE *Q VTE Criteria *Q: - Stroke *Q Stroke Criteria *Q: - AMI *Q AMI Criteria *Q:
[2017-10-09 14:19] VITALS: BP 115/61
--- NOTE | 2017-10-10 08:24 | PCM.SURGPN ---
- General Info Date of Service: 10/09/17 POD#: 2 Functional Status: Reports: Pain Controlled, Other (The pt will be transfered to [place] today for continued therapy.) - Patient Data Vitals - Most Recent: Last Vital Signs Temp 99.5 F 10/09/17 11:22 Pulse 73 10/09/17 11:22 Resp 18 10/09/17 11:22 BP 115/61 10/09/17 13:54 Pulse Ox 94 L 10/09/17 11:22 Weight - Most Recent: 225 lb 4.8 oz Lab Results Last 24 Hrs: Laboratory Results - last 24 hr 10/09/17 Range/Units 12:01 POC Glucose 166 H (80-115) mg/dL Med Orders - Current: Current Medications Discontinued Medications Acetaminophen (Tylenol) 650 mg PO Q4H PRN PRN Reason: Pain (Mild 1-3)/fever Hydrocodone Bitart/Acetaminophen ([place] 325-5 Mg) 1 tab PO Q4H PRN PRN Reason: Pain (moderate 4-6) Last Admin: 10/07/17 14:47 Dose: 1 tab Hydrocodone Bitart/Acetaminophen ([place] 325-5 Mg) 1 - 2 tab PO Q4H PRN PRN Reason: Pain Last Admin: 10/09/17 11:04 Dose: 2 tab Albuterol/Ipratropium (Duoneb 3.0-0.5 Mg/3 Ml) 3 ml NEB Q4H PRN PRN Reason: Shortness Of Breath/wheezing Aspirin (Halfprin) 162 mg PO DAILY [facility] Aspirin (Ecotrin) 325 mg PO BID [facility] Last Admin: 10/09/17 09:02 Dose: 325 mg Aspirin (Halfprin) 162 mg PO ONETIME ONE Stop: 10/08/17 11:46 Last Admin: 10/08/17 11:38 Dose: 162 mg Bisacodyl (Dulcolax) 5 mg PO DAILY PRN PRN Reason: Constipation Bupivacaine HCl (Marcaine 0.25%) Confirm Administered Dose 30 ml .ROUTE .STK- MED ONE Stop: 10/07/17 10:25 Last Admin: 10/07/17 12:22 Dose: 20 ml Bupivacaine HCl (Marcaine 0.25%) Confirm Administered Dose 30 ml .ROUTE .STK- MED ONE Stop: 10/07/17 11:24 Cefazolin Sodium (Ancef) Confirm Administered Dose 2 gm .ROUTE .STK-MED ONE Stop: 10/07/17 10:44 Cyclobenzaprine HCl (Flexeril) 10 mg PO Q8H PRN PRN Reason: Muscle Spasm Last Admin: 10/09/17 07:33 Dose: 10 mg Dextrose/Water (Dextrose 50% In Water) 50 ml IVPUSH ASDIRECTED PRN PRN Reason: Hypoglycemia Docusate Sodium (Colace) 100 mg PO BID PRN PRN Reason: Constipation Last Admin: 10/09/17 05:32 Dose: 100 mg Ephedrine Sulfate (Ephedrine Sulfate) Confirm Administered Dose 50 mg .ROUTE .STK-MED ONE Stop: 10/07/17 11:59 Fentanyl (Sublimaze) Confirm Administered Dose 100 mcg .ROUTE .STK-MED ONE Stop: 10/07/17 10:44 Fentanyl (Sublimaze) 50 mcg IVPUSH Q5M PRN PRN Reason: PAIN Stop: 10/07/17 16:00 Hydromorphone HCl (Dilaudid) 0.5 mg IVPUSH NOW STA Stop: 10/06/17 17:59 Last Admin: 10/06/17 18:01 Dose: 0.5 mg Hydromorphone HCl (Dilaudid) 1 mg IVPUSH ONETIME ONE Stop: 10/06/17 18:32 Last Admin: 10/06/17 18:36 Dose: 1 mg Hydromorphone HCl (Dilaudid) 1 mg IVPUSH Q4H PRN PRN Reason: Pain (severe 7-10) Last Admin: 10/08/17 14:20 Dose: 1 mg Sodium Chloride (Normal Saline) 1,000 mls @ 150 mls/hr IV ASDIRECTED JOSE RAFAEL Last Admin: 10/07/17 09:11 Dose: 150 mls/hr Promethazine HCl 12.5 mg/ (Sodium Chloride) 50.5 mls @ 100 mls/hr IV Q6H PRN PRN Reason: Nausea/Vomiting Lidocaine HCl (Xylocaine-Mpf 1%) Confirm Administered Dose 4 mls @ as directed .ROUTE .STK-MED ONE Stop: 10/07/17 10:44 Magnesium Sulfate 2 gm/ Premix 50 mls @ 25 mls/hr IV ONETIME ONE Stop: 10/07/17 18:59 Last Admin: 10/07/17 16:48 Dose: Not Given Lactated Ringer's (Ringers, Lactated) Confirm Administered Dose 1,000 mls @ as directed .ROUTE .STK-MED ONE Stop: 10/07/17 12:00 Lactated Ringer's (Ringers, Lactated) 500 mls @ 1,000 mls/hr IV .BOLUS ONE Stop: 10/07/17 13:14 Last Infusion: 10/07/17 13:02 Dose: Infused Insulin Aspart (Novolog) 0 unit SUBCUT QIDACANDBED [facility] PRN Reason: Protocol Last Admin: 10/09/17 12:05 Dose: 1 unit Insulin Detemir (Levemir) 6 unit SUBCUT BEDTIME [facility] Last Admin: 10/08/17 21:38 Dose: 6 units Insulin Detemir (Levemir) 26 unit SUBCUT QAM [facility] Last Admin: 10/09/17 09:03 Dose: 15 units Levothyroxine Sodium (Levothyroxine) 150 mcg PO DAILY@0600 [facility] Last Admin: 10/09/17 05:31 Dose: 150 mcg Lorazepam (Ativan) 0.5 mg IV Q6H PRN PRN Reason: Anxiety Losartan Potassium (Cozaar) 25 mg PO DAILY [facility] Last Admin: 10/09/17 08:59 Dose: 25 mg Magnesium Oxide (Magnesium Oxide) 800 mg PO ONETIME ONE Stop: 10/07/17 09:01 Last Admin: 10/07/17 09:17 Dose: Not Given Metoprolol Tartrate (Lopressor) 25 mg PO BID [facility] Last Admin: 10/09/17 09:01 Dose: 25 mg Midazolam HCl (Versed 1 Mg/Ml) Confirm Administered Dose 2 mg .ROUTE .STK-MED ONE Stop: 10/07/17 10:44 Multivitamins (Thera) 1 each PO DAILY [facility] Last Admin: 10/09/17 09:01 Dose: 1 each Non-Formulary Medication (Acetaminophen/Diphenhydramine) 1 tab PO BEDTIME PRN PRN Reason: Insomnia Non-Formulary Medication (Melatonin [Melatonin]) 10 mg PO BEDTIME [facility] Non-Formulary Medication (Triamcinolone Acetonide [Kenalog-10]) 1 applic TOP BID PRN PRN Reason: skin complications Non-Formulary Medication (Ubidecarenone) 1 tab PO DAILY [facility] Ondansetron HCl (Zofran) 4 mg IV Q6H PRN PRN Reason: Nausea/Vomiting Ondansetron HCl (Zofran Odt) 4 mg PO Q4H PRN PRN Reason: Nausea/Vomiting Ondansetron HCl (Zofran) Confirm Administered Dose 4 mg .ROUTE .STK-MED ONE Stop: 10/07/17 10:44 Fluticasone/Salmeterol [Advair 250-50] 0 each INH BID [facility] Last Admin: 10/09/17 09:32 Dose: 1 each Phenylephrine HCl (Jagjit-Synephrine) Confirm Administered Dose 10 mg .ROUTE .STK- MED ONE Stop: 10/07/17 11:33 Polyethylene Glycol (Miralax) 17 gm PO DAILY PRN PRN Reason: Constipation Propofol (Diprivan 20 Ml) Confirm Administered Dose 200 mg .ROUTE .STK-MED ONE Stop: 10/07/17 10:44 Propofol (Diprivan 20 Ml) Confirm Administered Dose 200 mg .ROUTE .STK-MED ONE Stop: 10/07/17 12:03 Propofol (Diprivan 20 Ml) Confirm Administered Dose 200 mg .ROUTE .STK-MED ONE Stop: 10/07/17 12:26 Rosuvastatin Calcium (Crestor) 10 mg PO DAILY [facility] Rosuvastatin Calcium (Crestor) 10 mg PO BEDTIME [facility] Last Admin: 10/08/17 21:31 Dose: 10 mg Senna/Docusate Sodium (Senna Plus) 1 tab PO BID PRN PRN Reason: Constipation Last Admin: 10/09/17 08:59 Dose: 1 tab Silver Sulfadiazine (Silvadene 1% Cream 400 Gm) 0 gm TOP TID PRN PRN Reason: SKIN COMPLICATIONS Silver Sulfadiazine (Silvadene 1% Cream 50 Gm) 0 gm TOP TID PRN PRN Reason: SKIN COMPLICATIONS Temazepam (Restoril) 15 mg PO BEDTIME PRN PRN Reason: Sleep - Exam Wound/Incisions: Other (No change with Mepilex from previous evaluations.) Extremities: Other (NVS intact for RLE. Rupesh's negative.) - Problem List Review Problem List Initiated/Reviewed/Updated: Yes - My Orders Last 24 Hours: Active Orders 24 hr Category Date Time Status Ready for Discharge [RC] PER UNIT ROUTINE Care 10/09/17 13:01 Active - Assessment Assessment (Free Text/Narrative):: POD#2 - IM atul right hip - Plan Plan (Free Text/Narrative):: 1. Discharge to [place] today for continued therapy. 2. ASA BID. 3. Further orders per Hospitalist service. The pt was evaluated by Dr. Tenorio today.
== END 2017-10-09 14:13 | DRG 481 ==
LOC: JD.ED 16:58 → JD.MS 19:56
PROVIDERS: ADMIT Internal Medicine; ATTEND Internal Medicine
PROC: 0QH606Z Insertion of Intramedullary Internal Fixation Device into Right Upper Femur, Open Approach (ICD-10-PCS; principal; 2017-10-07)
DX: S72.141A Displaced intertrochanteric fracture of right femur, initial encounter for closed fracture (principal); I25.810 Atherosclerosis of coronary artery bypass graft(s) without angina pectoris; W18.30XA Fall on same level, unspecified, initial encounter; Y93.9 Activity, unspecified; Y92.000 Kitchen of unspecified non-institutional (private) residence as the place of occurrence of the external cause; I10 Essential (primary) hypertension; Z87.891 Personal history of nicotine dependence; E78.00 Pure hypercholesterolemia, unspecified; G47.30 Sleep apnea, unspecified; I25.2 Old myocardial infarction; Z86.73 Personal history of transient ischemic attack (TIA), and cerebral infarction without residual deficits; G47.33 Obstructive sleep apnea (adult) (pediatric); J98.4 Other disorders of lung; E03.9 Hypothyroidism, unspecified; D69.6 Thrombocytopenia, unspecified; E87.6 Hypokalemia; L21.9 Seborrheic dermatitis, unspecified; Z66 Do not resuscitate; Z88.8 Allergy status to other drugs, medicaments and biological substances; Z79.82 Long term (current) use of aspirin; Z79.4 Long term (current) use of insulin; Z79.899 Other long term (current) drug therapy; E11.9 Type 2 diabetes mellitus without complications; E78.5 Hyperlipidemia, unspecified; I69.398 Other sequelae of cerebral infarction; H54.7 Unspecified visual loss
CPT/HCPCS: 36415; 71010; 73502; 80053; 85025; 85610; 85730; 86850; 86900; 86901; 93005; 96374; 96376; 99285; J1170 ×2; J7040; 01210; 71250; 71250-26; 76000; 76000-26; 80048; 82962; 83036; 83735; 84443; 87641; 93010; 94640; 94664; 94761; 97110-GP; 97116-GP; 97162-GP; 97167-GO; 97530-GP; 97535-GO; A9270-GY; C1713; C1776; J0690; J1815-GY; J2250; J2370; J2405; J2704; J3010; J3475; J3490; J7120

== ENCOUNTER 2022-06-02 23:28 | Emergency (ER) | payer MEDICARE, BC ==
[2022-06-02 23:46] VITALS: BP 134/56; PULSE 77
[2022-06-03] MEDS ORDERED: Ondansetron 4 MG/2 ML SDV IVPUSH ONE (00:01)
[2022-06-03] MEDS ORDERED: HYDROmorphone 1 MG/ML Syringe IVPUSH STA (00:01)
[2022-06-03] MEDS ORDERED: Sodium Chloride 0.9% 1,000 ML IV SCH (00:15)
== END 2022-06-03 04:07 | disposition home or self-care (01) ==
LOC: JD.ED 23:28
DX: R10.31 Right lower quadrant pain (principal); N32.9 Bladder disorder, unspecified; R94.5 Abnormal results of liver function studies; R74.8 Abnormal levels of other serum enzymes; N28.9 Disorder of kidney and ureter, unspecified; I25.10 Atherosclerotic heart disease of native coronary artery without angina pectoris; E78.00 Pure hypercholesterolemia, unspecified; I10 Essential (primary) hypertension; I25.2 Old myocardial infarction; E03.9 Hypothyroidism, unspecified; E11.9 Type 2 diabetes mellitus without complications; Z88.1 Allergy status to other antibiotic agents; Z79.899 Other long term (current) drug therapy; Z79.4 Long term (current) use of insulin; Z79.82 Long term (current) use of aspirin; Z86.73 Personal history of transient ischemic attack (TIA), and cerebral infarction without residual deficits; Z86.16 Personal history of COVID-19; Z87.891 Personal history of nicotine dependence
CPT/HCPCS: 36415; 74177; 80053; 81001; 83690; 83735; 85007; 85027; 96361; 96374; 96375; 99284; J1170; J2405; J7030